=== PATIENT | female | born 1990 | race African-American/Black ===

== ENCOUNTER 2016-07-09 17:58 | Emergency (ER) | payer OTHER ==
[~2016-07-09] VITALS: Ht 160 cm; Wt 56.0 kg
[~2016-07-09 17:58] MED LIST: AMOX500T PO; DICL50 PO
[2016-07-09 17:59] VITALS: BP 98/60; PULSE 116; RESP 20; TEMP 100.8; O2SAT 93
[2016-07-09] MEDS ORDERED: ACETAMINOPHEN 325 MG TAB PO ONE (19:30)
--- NOTE | 2016-07-09 19:33 | PD ---
HPI Chief Complaint: Cold / Flu Symptoms Time Seen by Provider: 19:32 Travel History International Travel<30 days: No Contact w/Intl Traveler<30days: No Traveled to known affect area: No History of Present Illness HPI 25 year-old female presents to emergency department for evaluation of cough, chest congestion, fever, chills, body aches worsening over the last 4 days. Patient states she has not had an appetite. Denies any vomiting or diarrhea. She has taken Tylenol yesterday which helped reduce her fever but feels as though his back. Did not get an influenza vaccination. She has no other symptoms to report at this time. [facility] Past Medical History Asthma: Yes Diminished Hearing: No Immunizations Current: Yes ?: Not : 4 Para: 4 Past Surgical History Section: Yes Social History Alcohol Use: No Tobacco Use: No Substance Use: No Allergies-Medications (Allergen,Severity, Reaction): Coded Allergies: No Known Allergies (Verified , 07/09/16) Reported Meds & Prescriptions Reported Meds & Active Scripts Active No Active Prescriptions or Reported Medications Review of Systems Except as stated in HPI: all other systems reviewed are Neg Physical Exam Narrative GENERAL: Well-nourished, well-developed female patient, appears is that she does not feel well but in no acute distress SKIN: Warm and dry. HEAD: Normocephalic. EYES: No scleral icterus. No injection or drainage. ENT: Mucosa pink and moist. Erythema without exudates.. No uvular edema. No uvular, palatal, or tonsillar deviation. Airway patent. Nasal turbinates appear normal without nasal blood, purulent drainage or septal hematoma. NECK: Supple, trachea midline. No JVD or lymphadenopathy. CARDIOVASCULAR: Tachycardic rate and rhythm without murmurs, gallops, or rubs. RESPIRATORY: Breath sounds diminished, clear equal bilaterally. No accessory muscle use. Abdomen: Abdomen soft, non-tender, nondistended. Positive bowel sounds. No hepato-splenomegaly, or palpable masses. No guarding. MUSCULOSKELETAL: No cyanosis, or edema. BACK: Nontender without obvious deformity. No CVA tenderness. Data Data Last Documented VS Vital Signs Date Time Temp Pulse Resp B/P Pulse Ox O2 Delivery O2 Flow Rate FiO2 07/09/16 20:09 99.8 106 18 101/60 98 Room Air Orders Influenzae A/B Antigen (07/09/16 19:23) Group A Rapid Strep Screen (07/09/16 19:23) Acetaminophen (Tylenol) (07/09/16 19:30) Strep Culture (Group A) (07/09/16 19:27) Chest, Single Ap (07/09/16 ) MDM Medical Decision Making Medical Screen Exam Complete: Yes Emergency Medical Condition: Yes Medical Record Reviewed: Yes Differential Diagnosis Influenza versus pneumonia versus strep pharyngitis versus viral syndrome versus tonsillitis Narrative Course 25-year-old female presents to emergency department for evaluation. Patient is positive for influenza a. X-ray imaging is without acute cardiopulmonary disease. Patient is counseled on care and discharged home. She agrees to return immediately if any acute worsening symptoms. Diagnosis Primary Impression: Influenza A Referrals: Primary Care Physician Patient Instructions: General Instructions, Influenza (ED) Departure Forms: Tests/Procedures, Work Release Enter return to work date: Jul 12, 2016 Additional Instructions: Rest Follow up with your primary care provider Tylenol and/or ibuprofen as directed as needed for fever and or pain Maintain adequate oral hydration Return to the ED with any acute worsening of symptoms Med/Other Pt SpecificInfo: No Change to Meds Scripts No Active Prescriptions or Reported Meds Disposition: 01 DISCHARGE HOME Condition: Stable Vandana Major Jul 09, 2016 19:32
[2016-07-09 20:09] VITALS: BP 101/60; PULSE 106; RESP 18; TEMP 99.8; O2SAT 98
--- NOTE | 2016-07-09 20:47 | RADRPT ---
EXAM DATE/TIME: 07/09/2016 20:24 [facility] COMPARISON: No previous studies available for comparison. INDICATIONS : Patient states she has flu-like symptoms since 07/07. Patient was shielded. MEDICAL HISTORY : None. SURGICAL HISTORY : None. ENCOUNTER: Initial ACUITY: 3 days PAIN SCORE: 0/10 LOCATION: chest FINDINGS: A single view of the chest demonstrates the lungs to be symmetrically aerated without evidence of mas s, infiltrate or effusion. The cardiomediastinal contours are unremarkable. Osseous structures are intact. CONCLUSION: No acute disease. Berhane Bustos MD on July 09, 2016 at 20:45 Board Certified Radiologist. This report was verified electronically.
== END 2016-07-09 21:05 | disposition home or self-care (01) ==
LOC: NEPB 17:58
DX: J09.X2 Influenza due to identified novel influenza A virus with other respiratory manifestations (principal); J45.909 Unspecified asthma, uncomplicated
CPT/HCPCS: 71010; 87081; 87804; 87880; 99283

== ENCOUNTER 2016-09-12 13:32 | Observation (INO) | payer OTHER ==
[~2016-09-12] VITALS: Ht 160 cm; Wt 57.0 kg
[2016-09-12 13:33] VITALS: BP 100/60; PULSE 114; RESP 20; TEMP 102.9; O2SAT 100
--- NOTE | 2016-09-12 13:49 | PD ---
Physical Exam Time Seen by Provider: 13:46 Narrative 25 y/o female here with (L) sided chest pain, headache which started this AM. Denies cough, congestion, sore throat, rash, recent travel, abdominal pain, diarrhea, dysuria, flank pain. Vital signs noted. Seen at triage desk. Awaiting bed placement. Data Data Last Documented VS Vital Signs Date Time Temp Pulse Resp B/P Pulse Ox O2 Delivery O2 Flow Rate FiO2 09/12/16 13:33 102.9 114 20 100/60 100 Room Air MDM Medical Record Reviewed: Yes Supervised Visit with SARIKA: No Scripts No Active Prescriptions or Reported Meds Ken Olvera September 12, 2016 13:49
[2016-09-12] MEDS ORDERED: SODIUM CHLOR 0.9% 1000 ML INJ 1,000 ML IV ONE (14:42)
[2016-09-12] MEDS ORDERED: SODIUM CHLOR 0.9% 1000 ML INJ 800 ML IV ONE (14:42)
[2016-09-12] MEDS ORDERED: IBUPROFEN 800 MG TAB PO ONE (14:45)
--- NOTE | 2016-09-12 14:51 | PD ---
HPI Chief Complaint: Chest Pain Time Seen by Provider: 14:46 Travel History International Travel<30 days: No Contact w/Intl Traveler<30days: No Traveled to known affect area: No History of Present Illness HPI Patient is a 25-year-old female presenting to emergency for evaluation of a headache. Patient states the headache started last night, she reports the pain is a 10 out of 10 and states it's all over. She presents with a fever as well but denies any sore throat, nausea, vomiting, abdominal pain, nasal congestion, visual changes, photophobia. She does report right upper chest wall pain that also started yesterday. 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 She denies any recent travel or sick contacts. Her past medical history significant for asthma. [facility] Past Medical History Asthma: Yes Diminished Hearing: No Immunizations Current: Yes ?: Not LMP: 09/12/2016 : 4 Para: 4 Past Surgical History Section: Yes (x1) Social History Alcohol Use: No Tobacco Use: No Substance Use: No Allergies-Medications (Allergen,Severity, Reaction): Coded Allergies: No Known Allergies (Verified , 09/12/16) Reported Meds & Prescriptions Reported Meds & Active Scripts Active Reported Flagyl (Metronidazole) 500 Mg Tab 500 Mg PO BID Review of Systems Except as stated in HPI: all other systems reviewed are Neg General / Constitutional: Positive: Fever Eyes: No: Blurred Vision, Photophobia, Visual changes HENT: Positive: Headaches, No: Lightheadedness, Neck Stiffness, Neck Pain Cardiovascular: Positive: Chest Pain or Discomfort Respiratory: No: Shortness of Breath Gastrointestinal: No: Nausea, Vomiting, Diarrhea, Abdominal Pain Genitourinary: No: Dysuria Musculoskeletal: No: Myalgias Neurologic: Positive: Headache, No: Weakness, Dizziness, Syncope, Focal Abnormalities, Change in Mentation, Sensory Disturbance Physical Exam Narrative GENERAL: Thin, well-developed, drowsy female. Resting in no acute distress. Pertinent bedside. SKIN: Warm and dry. HEAD: Atraumatic. Normocephalic. EYES: Pupils equal and round. No scleral icterus. No injection or drainage. ENT: No nasal bleeding or discharge. Mucous membranes pink and moist. NECK: Trachea midline. No JVD. No meningeal signs noted. CARDIOVASCULAR: Tachycardic, no murmur noted. RESPIRATORY: No accessory muscle use. Clear to auscultation. Breath sounds diminished in bases but equal bilaterally. GASTROINTESTINAL: Abdomen soft, non-tender, nondistended. Hepatic and splenic margins not palpable. MUSCULOSKELETAL: Extremities without clubbing, cyanosis, or edema. No obvious deformities. NEUROLOGICAL: Awake but appears drowsy. Oriented 4. No obvious cranial nerve deficits. Motor grossly within normal limits. Five out of 5 muscle strength in the arms and legs. Normal speech. PSYCHIATRIC: Appropriate mood and affect; insight and judgment normal. Data Data Last Documented VS Vital Signs Date Time Temp Pulse Resp B/P Pulse Ox O2 Delivery O2 Flow Rate FiO2 09/12/16 15:22 97 Room Air 09/12/16 15:22 18 09/12/16 13:33 102.9 114 100/60 Orders Electrocardiogram (09/12/16 ) Complete Blood Count With Diff (09/12/16 14:42) Comprehensive Metabolic Panel (09/12/16 14:42) Prothrombin Time / Inr (Pt) (09/12/16 14:42) Act Partial Throm Time (Ptt) (09/12/16 14:42) Lactic Acid Sepsis Protocol (09/12/16 14:42) Magnesium (Mg) (09/12/16 14:42) Ckmb (Isoenzyme) Profile (09/12/16 14:42) Troponin I (09/12/16 14:42) Urinalysis - C+S If Indicated (09/12/16 14:42) Influenzae A/B Antigen (09/12/16 14:42) Blood Culture (09/12/16 14:42) Chest, Single Ap (09/12/16 14:42) Blood Glucose (09/12/16 14:42) Ecg Monitoring (09/12/16 14:42) Iv Access Insert/Monitor (09/12/16 14:42) Oximetry (09/12/16 14:42) Oxygen Administration (09/12/16 14:42) Ibuprofen (Motrin) (09/12/16 14:45) Sodium Chlor 0.9% 1000 Ml Inj (Ns 1000 M (09/12/16 14:42) Sodium Chlor 0.9% 1000 Ml Inj (Ns 1000 M (09/12/16 14:42) Ed Urine Pregnancytest Poc (09/12/16 14:42) Ceftriaxone Inj (Rocephin Inj) (09/12/16 15:56) Azithromycin Inj (Zithromax Inj) (09/12/16 15:56) Albuterol-Ipratropium Neb (Duoneb Neb) (09/12/16 17:00) CKMB (09/12/16 15:15) CKMB% (09/12/16 15:15) Potassium Chloride (Kcl) (09/12/16 17:45) Labs Laboratory Tests Test 09/12/16 09/12/16 15:15 16:25 White Blood Count 8.0 TH/MM3 Red Blood Count 4.59 MIL/MM3 Hemoglobin 12.8 GM/DL Hematocrit 38.9 % Mean Corpuscular Volume 84.7 FL Mean Corpuscular Hemoglobin 27.8 PG Mean Corpuscular Hemoglobin 32.8 % Concent Red Cell Distribution Width 13.5 % Platelet Count 252 TH/MM3 Mean Platelet Volume 9.4 FL Neutrophils (%) (Auto) % Lymphocytes (%) (Auto) % Monocytes (%) (Auto) % Eosinophils (%) (Auto) % Basophils (%) (Auto) % Neutrophils # (Auto) TH/MM3 Lymphocytes # (Auto) TH/MM3 Monocytes # (Auto) TH/MM3 Eosinophils # (Auto) TH/MM3 Basophils # (Auto) TH/MM3 CBC Comment AUTO DIFF Differential Total Cells 100 Counted Neutrophils % (Manual) 67 % Band Neutrophils % 7 % Lymphocytes % 16 % Monocytes % 10 % Neutrophils # (Manual) 5.9 TH/MM3 Differential Comment FINAL DIFF MANUAL Toxic Vacuolation PRESENT Platelet Estimate NORMAL Platelet Morphology Comment ENLARGED Ovalocytes 1+ Prothrombin Time 13.5 SEC Prothromb Time International 1.2 RATIO Ratio Activated Partial 30.9 SEC Thromboplast Time Sodium Level 133 MEQ/L Potassium Level 3.3 MEQ/L Chloride Level 99 MEQ/L Carbon Dioxide Level 26.6 MEQ/L Anion Gap 7 MEQ/L Blood Urea Nitrogen 7 MG/DL Creatinine 0.84 MG/DL Estimat Glomerular Filtration 101 ML/MIN Rate Random Glucose 72 MG/DL Lactic Acid Level 1.2 mmol/L Calcium Level 8.5 MG/DL Magnesium Level 2.1 MG/DL Total Bilirubin 1.8 MG/DL Aspartate Amino Transf 14 U/L (AST/SGOT) Alanine Aminotransferase 12 U/L (ALT/SGPT) Alkaline Phosphatase 62 U/L Total Creatine Kinase 116 U/L Creatine Kinase MB LESS THAN 0.5 NG/ML Troponin I LESS THAN 0.02 NG/ML Total Protein 7.2 GM/DL Albumin 3.4 GM/DL Urine Color YELLOW Urine Turbidity HAZY Urine pH 7.0 Urine Specific [place] 1.013 Urine Protein NEG mg/dL Urine Glucose (UA) NEG mg/dL Urine Ketones NEG mg/dL Urine Occult Blood SMALL Urine Nitrite NEG Urine Bilirubin NEG Urine Urobilinogen LESS THAN 2.0 MG/DL Urine Leukocyte Esterase MOD Urine RBC 3 /hpf Urine WBC 4 /hpf Urine Squamous Epithelial 11 /hpf Cells Urine Bacteria RARE /hpf Urine Mucus FEW /lpf Microscopic Urinalysis Comment CATH-CULT NOT IND MDM Medical Decision Making Medical Screen Exam Complete: Yes Emergency Medical Condition: Yes Interpretation(s) Last Impressions Chest X-Ray 09/12/16 1442 Signed Impressions: Service Date/Time: Monday, September 12, 2016 15:18 - CONCLUSION: Left lower lobe infiltrate. Infectious etiology suspected. Ricci De La Garza Jr., MD Laboratory Tests Test 09/12/16 09/12/16 15:15 16:25 White Blood Count 8.0 TH/MM3 Red Blood Count 4.59 MIL/MM3 Hemoglobin 12.8 GM/DL Hematocrit 38.9 % Mean Corpuscular Volume 84.7 FL Mean Corpuscular Hemoglobin 27.8 PG Mean Corpuscular Hemoglobin 32.8 % Concent Red Cell Distribution Width 13.5 % Platelet Count 252 TH/MM3 Mean Platelet Volume 9.4 FL Neutrophils (%) (Auto) % Lymphocytes (%) (Auto) % Monocytes (%) (Auto) % Eosinophils (%) (Auto) % Basophils (%) (Auto) % Neutrophils # (Auto) TH/MM3 Lymphocytes # (Auto) TH/MM3 Monocytes # (Auto) TH/MM3 Eosinophils # (Auto) TH/MM3 Basophils # (Auto) TH/MM3 CBC Comment AUTO DIFF Prothrombin Time 13.5 SEC Prothromb Time International 1.2 RATIO Ratio Activated Partial 30.9 SEC Thromboplast Time Sodium Level 133 MEQ/L Potassium Level 3.3 MEQ/L Chloride Level 99 MEQ/L Carbon Dioxide Level 26.6 MEQ/L Anion Gap 7 MEQ/L Blood Urea Nitrogen 7 MG/DL Creatinine 0.84 MG/DL Estimat Glomerular Filtration 101 ML/MIN Rate Random Glucose 72 MG/DL Lactic Acid Level 1.2 mmol/L Calcium Level 8.5 MG/DL Magnesium Level 2.1 MG/DL Total Bilirubin 1.8 MG/DL Aspartate Amino Transf 14 U/L (AST/SGOT) Alanine Aminotransferase 12 U/L (ALT/SGPT) Alkaline Phosphatase 62 U/L Total Creatine Kinase 116 U/L Creatine Kinase MB LESS THAN 0.5 NG/ML Troponin I LESS THAN 0.02 NG/ML Total Protein 7.2 GM/DL Albumin 3.4 GM/DL Urine Color YELLOW Urine Turbidity HAZY Urine pH 7.0 Urine Specific [place] 1.013 Urine Protein NEG mg/dL Urine Glucose (UA) NEG mg/dL Urine Ketones NEG mg/dL Urine Occult Blood SMALL Urine Nitrite NEG Urine Bilirubin NEG Urine Urobilinogen LESS THAN 2.0 MG/DL Urine Leukocyte Esterase MOD Urine RBC 3 /hpf Urine WBC 4 /hpf Urine Squamous Epithelial 11 /hpf Cells Urine Bacteria RARE /hpf Urine Mucus FEW /lpf Microscopic Urinalysis Comment CATH-CULT NOT IND Vital Signs Date Time Temp Pulse Resp B/P Pulse Ox O2 Delivery O2 Flow Rate FiO2 09/12/16 13:33 102.9 114 20 100/60 100 Room Air Differential Diagnosis Meningitis versus viral syndrome versus influenza versus sepsis versus cardiac arrhythmia versus electrolyte abnormality versus pneumonia versus other Narrative Course Patient is a 25 -year-old female presenting to emergency for evaluation of a headache. She reports this is the worst headache that she's had. She denies any other symptomology. Patient is febrile with a max temp in the emergency department of 103 orally, she is tachycardic, she appears drowsy however she has no meningeal signs at this time. Labs and imaging ordered and pending, ibuprofen ordered for fever. IV fluid resuscitation for sepsis protocol. Patient placed on telemetry monitoring, continuous pulse oximetry, IV access initiated. CBC is unremarkable Chemistry with potassium of 3.3 Cardiac enzymes are negative Urinalysis negative of urinary tract infection Lactic acid is 1.2 Patient was given 2 L of IV fluids, IV azithromycin, IV Rocephin in the emergency department. Heart rate rechecked at 88, temp 99.3, BP 96/62 Patient meet sepsis criteria, patient is agreeable to inpatient stay. [facility] paged for admission. Dr. Ingram accepted admission on behalf of Dr. Rowland Sepsis Criteria SIRS Criteria (2 or more): Temp > 100.9 or < 96.8, Heart rate over 90 Sepsis Criteria (SIRS+source): Infect source susp/known Severe Sepsis (+one): Hypotension Criteria Outcome: Meets severe sepsis criteria Diagnosis Primary Impression: Sepsis Qualified Code: A41.9 - Sepsis, due to unspecified organism Additional Impression: Pneumonia Qualified Code: J18.1 - Pneumonia of left lower lobe due to infectious organism Condition: Stable Adrianna Hernandez DOOR TO DOOR SELLING AGENT September 12, 2016 14:51
[2016-09-12 15:22] VITALS: RESP 18; O2SAT 97
[2016-09-12] MEDS ORDERED: METR-1 PO (15:26)
--- NOTE | 2016-09-12 15:54 | RADRPT ---
EXAM DATE/TIME: 09/12/2016 15:18 [facility] COMPARISON: CHEST SINGLE AP, July 09, 2016, 20:24. INDICATIONS : Fever that started yesterday. MEDICAL HISTORY : Asthma. SURGICAL HISTORY : None. ENCOUNTER: Initial ACUITY: 2 days PAIN SCORE: 0/10 LOCATION: Bilateral chest FINDINGS: A single portable frontal view the chest shows a left lower lobe infiltrate. This is new from the loc or study. Right lung is clear. Heart is normal in size. No effusions. Mild scoliotic curvature. CONCLUSION: Left lower lobe infiltrate. Infectious etiology suspected. Ricci De La Garza Jr., MD on September 12, 2016 at 15:50 Board Certified Radiologist. This report was verified electronically.
[2016-09-12] MEDS ORDERED: AZITHROMYCIN INJ 500 MG in SODIUM CHLOR 0.9% 250 ML INJ 250 ML IV STA (15:56)
[2016-09-12] MEDS ORDERED: cefTRIAXone INJ 2,000 MG in SODIUM CHLORIDE 0.9% INJ 100 ML IV STA (15:56)
[2016-09-12 16:39] LABS: HEMATOCRIT 38.9 % (35.0-46.0); MEAN CELL VOLUME 84.7 FL (80.0-100.0); MEAN CORPUSCULAR HEMOGLOBIN 27.8 PG (27.0-34.0); MEAN CORPUSCULAR HGB CONC 32.8 % (32.0-36.0); PLATELET COUNT 252 TH/MM3 (150-450); RED BLOOD COUNT 4.59 MIL/MM3 (4.00-5.30); RED CELL DISTRIBUTION WIDTH 13.5 % (11.6-17.2)
[2016-09-12 16:47] LABS: APTT (PATIENT) 30.9 SEC (24.3-30.1); INTERNATIONAL NORMALIZED RATIO 1.2 RATIO; PROTHROMBIN TIME - PATIENT 13.5 SEC (9.8-11.6)
[2016-09-12 16:58] LABS: ALT (GPT) 12 U/L (10-53); ANION GAP 7 MEQ/L (5-15); AST (GOT) 14 U/L (15-37); BICARBONATE 26.6 MEQ/L (21.0-32.0); BLOOD UREA NITROGEN 7 MG/DL (7-18); CHLORIDE 99 MEQ/L (98-107); GLOMERULAR FILTRATION RATE 101 ML/MIN (>89); MAGNESIUM 2.1 MG/DL (1.5-2.5); POTASSIUM 3.3 MEQ/L (3.5-5.1); SODIUM (NA) 133 MEQ/L (136-145)
[2016-09-12] MEDS ORDERED: RESP: ALBUTEROL 2.5 MG/IPRATROPIUM 0.5 MG NEB (SCH) NEB ONE (17:00)
[2016-09-12 17:06] LABS: ALKALINE PHOSPHATASE 62 U/L (45-117); CREATINE KINASE 116 U/L (26-192); TOTAL BILIRUBIN ADULT 1.8 MG/DL (0.2-1.0)
[2016-09-12 17:07] LABS: HEMO FLAGS AUTO DIFF
[2016-09-12 17:16] LABS: BACTERIA, URINE RARE /hpf; BLOOD, URINE SMALL (NEG); GLUCOSE,URINE NEG (NEG); KETONE, URINE NEG (NEG); MUCUS URINE FEW /lpf (OCC); NITRITE,URINE NEG (NEG); SQUAMOUS EPITHELIAL CELL URINE 11 /hpf (0-5); URINE COLOR YELLOW (YELLW/STRAW)
[2016-09-12 17:17] LABS: COMMENT (UR) CATH-CULT NOT IND; CULTURE IF INDICATED CATH CULTURE NOT IND
[2016-09-12 17:18] LABS: CKMB LESS THAN 0.5 NG/ML (0.5-3.6)
[2016-09-12 17:38] LABS: BANDS 7 % (0-6); NEUTROPHIL # MANUAL DIFF 5.9 TH/MM3 (1.8-7.7); POLYS (SEG NEUTROPHILS) 67 % (16-70); WBC DIFF SAMPLE 100
[2016-09-12 17:40] LABS: OVALOCYTES 1+ (NORMAL); PLATELET ESTIMATE SMEAR NORMAL (NORMAL); PLATELET MORPHOLOGY ENLARGED (NORMAL); TOXIC VACUOLATION PRESENT (NONE SEEN)
[2016-09-12 17:42] LABS: SCAN/DIFF FINAL DIFF MANUAL
[2016-09-12] MEDS ORDERED: POTASSIUM CHLORIDE 10 MEQ CONTROLLED RELEASE TAB PO ONE (17:45)
[2016-09-12 18:21] VITALS: BP 96/63; PULSE 91; RESP 18; O2SAT 100
--- NOTE | 2016-09-12 18:23 | EKG ---
Date Performed: 09/12/2016 Time Performed: 14:01:13 PTAGE: 25 years EKG: SINUS TACHYCARDIA NONSPECIFIC ST & T-WAVE ABNORMALITY ABNORMAL ECG NO PREVIOUS TRACING DOCTOR: Jacob Lyman Interpretating Date/Time 09/12/2016 18:22:00
[2016-09-12 19:13] VITALS: BP 92/51; PULSE 96; RESP 18; O2SAT 100
--- NOTE | 2016-09-12 21:30 | HHI.HP ---
HPI Service [facility] Hospitalists Primary Care Physician No Primary Care Physician Admission Diagnosis SEPSIS, PNA Chief Complaint: headache pleuritic chest pain fever Travel History International Travel<30 Days: No Contact w/Intl Traveler <30 Da: No Traveled to Known Affected Are: No Sepsis Criteria SIRS Criteria (2 or more): Temp > 100.9 or < 96.8, Heart rate over 90 Sepsis Criteria (SIRS+source): Infect source susp/known History of Present Illness Patient is a 25-year-old female presenting to emergency for evaluation of a headache. Patient states the headache started last night, she reports the pain is a 10 out of 10 and states it's all over. She presents with a fever as well but denies any sore throat, nausea, vomiting, abdominal pain, nasal congestion, visual changes, photophobia. She does report right upper chest wall pain that also started yesterday. Patient states maybe has slight cough. 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 She denies any recent travel or sick contacts. Her past medical history significant for asthma. In er had chest xray which has left lower lobe infiltrate consistent with pneumonia. Review of Systems Constitutional: COMPLAINS OF: Fatigue, Fever Respiratory: COMPLAINS OF: Cough Past Family Social History Past Medical History none Past Surgical History none Reported Medications flagyl Allergies: Coded Allergies: No Known Allergies (Verified , 09/12/16) Social History NS,ND Physical Exam Vital Signs Vital Signs Date Time Temp Pulse Resp B/P Pulse Ox O2 Delivery O2 Flow Rate FiO2 09/12/16 19:13 96 18 92/51 100 Room Air 09/12/16 18:21 91 18 96/63 100 Room Air 09/12/16 15:22 97 Room Air 09/12/16 15:22 18 97 Room Air 09/12/16 13:33 102.9 114 20 100/60 100 Room Air Physical Exam GENERAL: This is a well-nourished, well-developed patient, in no apparent distress. SKIN: No rashes, ecchymoses or lesions. Cool and dry. HEAD: Atraumatic. Normocephalic. No temporal or scalp tenderness. EYES: Pupils equal round and reactive. Extraocular motions intact. No scleral icterus. No injection or drainage. ENT: Nose without bleeding, purulent drainage or septal hematoma. Throat without erythema, tonsillar hypertrophy or exudate. Uvula midline. Airway patent. NECK: Trachea midline. No JVD or lymphadenopathy. Supple, nontender, no meningeal signs. CARDIOVASCULAR: Regular rate and rhythm without murmurs, gallops, or rubs. RESPIRATORY: Rhonchi base decrease breath sounds. GASTROINTESTINAL: Abdomen soft, non-tender, nondistended. No hepato-splenomegaly , or palpable masses. No guarding. MUSCULOSKELETAL: Extremities without clubbing, cyanosis, or edema. No joint tenderness, effusion, or edema noted. No calf tenderness. Negative Homans sign bilaterally. NEUROLOGICAL: Awake and alert. Cranial nerves II through XII intact. Motor and sensory grossly within normal limits. Five out of 5 muscle strength in all muscle groups. Normal speech. Laboratory Laboratory Tests Test 09/12/16 09/12/16 15:15 16:25 White Blood Count 8.0 Red Blood Count 4.59 Hemoglobin 12.8 Hematocrit 38.9 Mean Corpuscular Volume 84.7 Mean Corpuscular Hemoglobin 27.8 Mean Corpuscular Hemoglobin 32.8 Concent Red Cell Distribution Width 13.5 Platelet Count 252 Mean Platelet Volume 9.4 Neutrophils (%) (Auto) Lymphocytes (%) (Auto) Monocytes (%) (Auto) Eosinophils (%) (Auto) Basophils (%) (Auto) Neutrophils # (Auto) Lymphocytes # (Auto) Monocytes # (Auto) Eosinophils # (Auto) Basophils # (Auto) CBC Comment AUTO DIFF Differential Total Cells 100 Counted Neutrophils % (Manual) 67 Band Neutrophils % 7 Lymphocytes % 16 Monocytes % 10 Neutrophils # (Manual) 5.9 Differential Comment FINAL DIFF MANUAL Toxic Vacuolation PRESENT Platelet Estimate NORMAL Platelet Morphology Comment ENLARGED Ovalocytes 1+ Prothrombin Time 13.5 Prothromb Time International 1.2 Ratio Activated Partial 30.9 Thromboplast Time Sodium Level 133 Potassium Level 3.3 Chloride Level 99 Carbon Dioxide Level 26.6 Anion Gap 7 Blood Urea Nitrogen 7 Creatinine 0.84 Estimat Glomerular Filtration 101 Rate Random Glucose 72 Lactic Acid Level 1.2 Calcium Level 8.5 Magnesium Level 2.1 Total Bilirubin 1.8 Aspartate Amino Transf 14 (AST/SGOT) Alanine Aminotransferase 12 (ALT/SGPT) Alkaline Phosphatase 62 Total Creatine Kinase 116 Creatine Kinase MB LESS THAN 0.5 Troponin I LESS THAN 0.02 Total Protein 7.2 Albumin 3.4 Urine Color YELLOW Urine Turbidity HAZY Urine pH 7.0 Urine Specific [place] 1.013 Urine Protein NEG Urine Glucose (UA) NEG Urine Ketones NEG Urine Occult Blood SMALL Urine Nitrite NEG Urine Bilirubin NEG Urine Urobilinogen LESS THAN 2.0 Urine Leukocyte Esterase MOD Urine RBC 3 Urine WBC 4 Urine Squamous Epithelial 11 Cells Urine Bacteria RARE Urine Mucus FEW Microscopic Urinalysis Comment CATH-CULT NOT IND Date/Time Procedure Status Source Growth 09/12/16 15:20 Influenza Types A,B Antigen (LUCIAN) - Final Complete Nasal Washing NEGATIVE FOR FLU A AND B ANTIGEN.... 09/12/16 15:20 Aerobic Blood Culture Received Blood Peripheral Pending 09/12/16 15:20 Anaerobic Blood Culture Received Blood Peripheral Pending Result Diagram: 09/12/16 1515 09/12/16 1515 Imaging Last 24 hours Impressions Chest X-Ray 09/12/16 1442 Signed Impressions: Service Date/Time: Monday, September 12, 2016 15:18 - CONCLUSION: Left lower lobe infiltrate. Infectious etiology suspected. Ricci De La Garza Jr., MD Course in er started on rocephin and zithromax Assessment and Plan Problem List: (1) Pneumonia Status: Acute Plan: start rocephin and zithromax IV (2) Sepsis Status: Acute Plan: based on criteria will follow up clinically (3) Head ache Status: Acute Plan: improved at this time but patient did say was worst headache she has had would get CT head non contrast Assessment and Plan further plan as case develops Code Status full Discussed Condition With patient Physician Certification 2 Midnight Certification Type: Admission for Inpatient Services Order for Inpatient Services The services are ordered in accordance with Medicare regulations or non- Medicare payer requirements, as applicable. In the case of services not specified as inpatient-only, they are appropriately provided as inpatient services in accordance with the 2-midnight benchmark. Estimated LOS (days): 2 2 days is the estimated time the patient will need to remain in the hospital, assuming treatment plan goals are met and no additional complications. Post-Hospital Plan: Not yet determined Problem Qualifiers (1) Pneumonia: Qualified Code: J18.1 - Pneumonia of left lower lobe due to infectious organism (2) Sepsis: Qualified Code: A41.9 - Sepsis, due to unspecified organism Antelmo Sams MD September 12, 2016 21:30
[2016-09-12] MEDS ORDERED: ONDANSETRON HCL 4 MG/2 ML VIAL IVP PRN (21:45)
[2016-09-12] MEDS ORDERED: SODIUM CHLORIDE 0.9% FLUSH 10 ML FLUSH IV FLUSH PRN (21:45)
[2016-09-12] MEDS ORDERED: NALOXONE HCL 0.4 MG/ML AMP IV PRN (21:45)
[2016-09-12] MEDS ORDERED: ACETAMINOPHEN 325 MG TAB PO PRN (21:45)
[2016-09-12] MEDS: SODIUM CHLORIDE 0.9% FLUSH 10 ML FLUSH IV FLUSH SCH (21:55)
[2016-09-12] MEDS ORDERED: 1/2 NS + KCL 20 MEQ INJ 1,000 ML IV SCH (22:00)
[2016-09-12 22:35] VITALS: BP 95/64; PULSE 86; RESP 18; O2SAT 98
[2016-09-13] VITALS (7 sets, daily range): BP systolic 99–110; BP diastolic 57–65; PULSE 84–115; RESP 18–20; TEMP 97.7–99.4; O2SAT 98–100
[2016-09-13 08:50] LABS: AUTOMATED NEUTROPHIL # 4.4 TH/MM3 (1.8-7.7); BASOPHIL % 0.6 % (0.0-2.0); EOSINOPHIL # 0.2 TH/MM3 (0-0.4); EOSINOPHIL % 3.2 % (0.0-4.0); HEMATOCRIT 33.7 % (35.0-46.0); HEMO FLAGS DIFF FINAL; LYMPH % 14.1 % (9.0-44.0); LYMPHOCYTE # 0.9 TH/MM3 (1.0-4.8); MEAN CELL VOLUME 84.5 FL (80.0-100.0); MEAN CORPUSCULAR HGB CONC 33.2 % (32.0-36.0); MONO % 12.6 % (0.0-8.0); NEUT % 69.5 % (16.0-70.0); PLATELET COUNT 223 TH/MM3 (150-450); RED BLOOD COUNT 3.98 MIL/MM3 (4.00-5.30); RED CELL DISTRIBUTION WIDTH 13.4 % (11.6-17.2); WHITE BLOOD COUNT 6.3 TH/MM3 (4.0-11.0)
[2016-09-13] MEDS ORDERED: metroNIDAZOLE 500 MG TAB PO SCH (09:00)
--- NOTE | 2016-09-13 11:30 | HHI.PR ---
Subjective Remarks denies left cp or branch now no cough/congestion. Objective Vitals heart reg lung good air entry abd s/nt ext no edema Vital Signs Date Time Temp Pulse Resp B/P Pulse Ox O2 Delivery O2 Flow Rate FiO2 09/13/16 08:35 100 09/13/16 08:00 99.4 97 20 102/57 98 09/13/16 04:00 99.2 105 20 110/65 100 09/13/16 01:22 84 09/13/16 00:45 97.7 87 18 106/57 100 09/12/16 22:35 86 18 95/64 98 Room Air 09/12/16 19:13 96 18 92/51 100 Room Air 09/12/16 18:21 91 18 96/63 100 Room Air 09/12/16 15:22 97 Room Air 09/12/16 15:22 18 97 Room Air 09/12/16 13:33 102.9 114 20 100/60 100 Room Air 09/12/16 09/12/16 09/13/16 15:00 23:00 07:00 Intake Total 658 ml Balance 658 ml Intake Oral 0 ml IV Total 658 ml # Voids 1 # Bowel Movements 0 Result Diagram: 09/13/16 0705 09/12/16 1515 Imaging Last 24 hours Impressions Chest X-Ray 09/12/16 1442 Signed Impressions: Service Date/Time: Monday, September 12, 2016 15:18 - CONCLUSION: Left lower lobe infiltrate. Infectious etiology suspected. Ricci De La Garza Jr., MD A/P Problem List: (1) Pneumonia Status: Acute Plan: Pt presented with high fever, BRANCH and left cp works in RETIREMENT w/up in ED was concerning for left lung pna..she still has no respiratory sx's She refused ivf and iv abx and wants po convert to po levaquin recheck labs and hcg this AM..reimage lung d/c ivf will need close outpt f/u (2) Head ache Status: Acute Plan: see above Problem Qualifiers (1) Pneumonia: Qualified Code: J18.1 - Pneumonia of left lower lobe due to infectious organism Oscar Rowland MD September 13, 2016 11:30
[2016-09-13] MEDS ORDERED: LEVOFLOXACIN 500 MG TAB PO ONE (12:30)
[2016-09-13] MEDS: IBUPROFEN 400 MG TAB PO PRN ×2 (12:45→20:39)
[2016-09-13 14:38] LABS: AUTOMATED NEUTROPHIL # 5.3 TH/MM3 (1.8-7.7); BASOPHIL % 0.4 % (0.0-2.0); EOSINOPHIL # 0.2 TH/MM3 (0-0.4); EOSINOPHIL % 2.4 % (0.0-4.0); HEMATOCRIT 35.4 % (35.0-46.0); HEMO FLAGS DIFF FINAL; LYMPH % 16.3 % (9.0-44.0); LYMPHOCYTE # 1.2 TH/MM3 (1.0-4.8); MEAN CELL VOLUME 84.8 FL (80.0-100.0); MEAN CORPUSCULAR HEMOGLOBIN 26.7 PG (27.0-34.0); MEAN CORPUSCULAR HGB CONC 31.5 % (32.0-36.0); MONO % 10.2 % (0.0-8.0); NEUT % 70.7 % (16.0-70.0); PLATELET COUNT 240 TH/MM3 (150-450); RED BLOOD COUNT 4.17 MIL/MM3 (4.00-5.30); RED CELL DISTRIBUTION WIDTH 13.2 % (11.6-17.2); WHITE BLOOD COUNT 7.5 TH/MM3 (4.0-11.0)
[2016-09-13 14:59] LABS: ANION GAP 6 MEQ/L (5-15); BICARBONATE 25.1 MEQ/L (21.0-32.0); BLOOD UREA NITROGEN 5 MG/DL (7-18); CHLORIDE 106 MEQ/L (98-107); GLOMERULAR FILTRATION RATE 131 ML/MIN (>89); POTASSIUM 3.8 MEQ/L (3.5-5.1); SODIUM (NA) 137 MEQ/L (136-145)
[2016-09-13 15:03] LABS: BETA HCG QUANT LESS THAN 1 MIU/ML (0-5)
[2016-09-13] MEDS ORDERED: AZITHROMYCIN INJ 500 MG in SODIUM CHLOR 0.9% 250 ML INJ 250 ML IV SCH (16:00)
[2016-09-13] MEDS ORDERED: cefTRIAXone INJ 1,000 MG in SODIUM CHLORIDE 0.9% INJ 100 ML IV SCH (16:00)
--- NOTE | 2016-09-13 16:34 | RADRPT ---
EXAM DATE/TIME: 09/13/2016 16:14 [facility] COMPARISON: No previous studies available for comparison. INDICATIONS : Evaluate for pneumonia. RADIATION DOSE: 4.94 CTDIvol (mGy) MEDICAL HISTORY : None SURGICAL HISTORY : None. ENCOUNTER: Initial ACUITY: 1 day PAIN SCALE: 0/10 LOCATION: Bilateral chest TECHNIQUE: Volumetric scanning of the chest was performed. Using automated exposure control and adjustment of t he mA and/or kV according to patient size, radiation dose was kept as low as reasonably achievable to obtain optimal diagnostic quality images. FINDINGS: LUNGS: A dense consolidation with air bronchograms observed involving the left lower lobe. Remaining lungs a re clear. PLEURAE: There is no pleural thickening or pleural effusion. MEDIASTINUM: The heart and great vessels demonstrate no acute abnormality. There is no mediastinal or hilar lymph adenopathy. AXILLAE: Within normal limits. No lymphadenopathy. MUSCULOSKELETAL: Within normal limits for patient age. MISCELLANEOUS: The visualized upper abdominal organs demonstrate no acute abnormality. CONCLUSION: 1. Left lower lobe infiltrate. Infectious etiology suspected. Ricci De La Garza Jr., MD on September 13, 2016 at 16:29 Board Certified Radiologist. This report was verified electronically.
[2016-09-13] MEDS: SODIUM CHLORIDE 0.9% FLUSH 10 ML FLUSH IV FLUSH SCH (20:19)
[2016-09-14] VITALS: BP 94/51; PULSE 83; RESP 18; TEMP 98.2; O2SAT 100
[2016-09-14 04:00] VITALS: BP 101/60; PULSE 77; RESP 18; TEMP 98.4; O2SAT 98
[2016-09-14 08:00] VITALS: BP 116/66; PULSE 82; RESP 20; TEMP 98.2; O2SAT 96
[2016-09-14] MEDS: SODIUM CHLORIDE 0.9% FLUSH 10 ML FLUSH IV FLUSH SCH (08:38)
[2016-09-14] MEDS ORDERED: LEVOFLOXACIN 500 MG TAB PO SCH (09:00)
--- NOTE | 2016-09-14 09:10 | HHI.PR ---
Subjective Remarks no respiratory distress wants to go home. Objective Vitals heent neg heart reg lung good air entry abd s/nt ext no edema Vital Signs Date Time Temp Pulse Resp B/P Pulse Ox O2 Delivery O2 Flow Rate FiO2 09/14/16 08:00 98.2 82 20 116/66 96 09/14/16 04:00 98.4 77 18 101/60 98 09/14/16 00:00 98.2 83 18 94/51 100 09/13/16 20:00 98.3 108 18 99/63 98 09/13/16 13:45 20 09/13/16 12:00 99.2 115 20 110/63 100 09/13/16 09/13/16 09/14/16 15:00 23:00 07:00 Intake Total 220 ml 120 ml Balance 220 ml 120 ml Intake Oral 220 ml 120 ml IV Total 0 ml # Voids 2 1 # Bowel Movements 0 0 Result Diagram: 09/13/16 1328 09/13/16 1328 Imaging Last 24 hours Impressions Chest X-Ray 09/12/16 1442 Signed Impressions: Service Date/Time: Monday, September 12, 2016 15:18 - CONCLUSION: Left lower lobe infiltrate. Infectious etiology suspected. Ricci De La Garza Jr., MD A/P Problem List: (1) Pneumonia Status: Acute Plan: Pt presented with high fever, BRANCH and left cp works in [employer] cxr and ct chest reveal left lung pna She refused ivf and iv abx and wants po pt is asx today will dc on levaquin long discussion about f/u pcp office and get repeat cxr to assure resolution. she just signed up with [facility] and her mother goes to [facility]...I called cp call center and they say she is assigned to the same clinic. pt will call for new pt appt and hospital f/u. (2) Head ache Status: Acute Plan: see above Problem Qualifiers (1) Pneumonia: Qualified Code: J18.1 - Pneumonia of left lower lobe due to infectious organism Oscra Rowland MD September 14, 2016 09:10
[2016-09-14] MEDS ORDERED: LEVA500T PO (09:11)
--- NOTE | 2016-09-14 09:12 | HHI.DCPOC ---
Discharge Care Plan Diagnosis: (1) Pneumonia Goals to Promote Your Health * To prevent worsening of your condition and complications * To maintain your health at the optimal level Directions to Meet Your Goals Take your medications as prescribed Follow your dietary instruction Follow activity as directed Keep your appointments as scheduled Take your immunizations and boosters as scheduled If your symptoms worsen call your PCP, if no PCP go to Urgent Care Center or Emergency Room Smoking is Dangerous to Your Health. Avoid second hand smoke Call the 24-hour hour crisis hotline for domestic abuse at Oscar Rowland MD September 14, 2016 09:12
== END 2016-09-14 10:15 | disposition home or self-care (01) ==
LOC: NEPD 13:32 → NEDH 18:28 → INTOOBSV 18:28 → N04A 09-13 00:36
PROVIDERS: ADMIT Hospitalist; ATTEND Hospitalist
DX: A41.9 Sepsis, unspecified organism (principal); J18.1 Lobar pneumonia, unspecified organism; R51 Headache; J45.909 Unspecified asthma, uncomplicated; R00.0 Tachycardia, unspecified; R94.31 Abnormal electrocardiogram [ECG] [EKG]
CPT/HCPCS: 71010; 71250; 80048; 80053; 81001; 82550; 82552; 83605; 83735; 84484; 84702; 84703; 85007; 85025; 85027; 85610; 85730; 87040; 87449; 87804; 93005; 94664; 96361; 96365; 96366; 96368; 99285; G0378; J0456; J0696; J7030; J7050

== ENCOUNTER 2016-09-24 21:50 | Emergency (ER) | payer OTHER ==
[~2016-09-24] VITALS: Ht 167.6 cm; Wt 55.0 kg
[~2016-09-24 21:50] MED LIST changes: -AMOX500T PO; -DICL50 PO; +LEVA500T PO
[2016-09-24 21:52] VITALS: BP 100/64; PULSE 72; RESP 16; TEMP 97.7; O2SAT 100
--- NOTE | 2016-09-24 22:29 | PD ---
HPI Chief Complaint: Chest Pain Time Seen by Provider: 22:24 Travel History International Travel<30 days: No Contact w/Intl Traveler<30days: No Traveled to known affect area: No History of Present Illness HPI 25-year-old female presents to the emergency department for one day of right- sided chest tightness. Patient notes that the area is tender to palpation and pushing on her chest wall and she worsens her discomfort. Patient states at rest discomfort is 5/10 in intensity and with palpation as 8/10 in intensity. Patient reports she was recently hospitalized September 12 to September 14 with diagnosis of pneumonia and is currently taking outpatient Levaquin daily and has 2 remaining dosages of the medication to take. Patient's had no further fever chills cough congestion shortness of breath pleuritic chest pain; has experienced no nausea no vomiting no abdominal pain no diarrhea no flank pain no dysuria frequency or urgency; and last period was September 12 and denies . Patient denies any chronic medical conditions such as CAD hypertension dyslipidemia diabetes tobaccoism clotting disorder or premature onset heart disease in her family. Patient has taken no medication for her discomfort. Patient does have a prescription for ibuprofen and her purse and her grandmother offered her some ibuprofen which he did not take any of this medication. [facility] Past Medical History Narrative Medical Asthma, pneumonia times one; no tobacco use; nursing notes reviewed Asthma: Yes Cancer: No Cardiovascular Problems: No Diminished Hearing: No Endocrine: No Immune Disorder: No Musculoskeletal: No Neurologic: No Psychiatric: No Reproductive: No Immunizations Current: Yes Tetanus Vaccination: Unknown Influenza Vaccination: No ?: Not LMP: 09/12/16 : 4 Para: 4 Past Surgical History Section: Yes (x1) Gynecologic Surgery: Yes (1 c section) Social History Alcohol Use: No Tobacco Use: No Substance Use: No Allergies-Medications (Allergen,Severity, Reaction): Coded Allergies: No Known Allergies (Verified , 09/24/16) Reported Meds & Prescriptions Reported Meds & Active Scripts Active Levaquin (Levofloxacin) 500 Mg Tab 500 Mg PO DAILY Review of Systems Except as stated in HPI: all other systems reviewed are Neg General / Constitutional: No: Fever, Chills HENT: No: Congestion Cardiovascular: Positive: Chest Pain or Discomfort Respiratory: No: Cough, Shortness of Breath, Wheezing Gastrointestinal: No: Nausea, Vomiting, Diarrhea, Abdominal Pain Genitourinary: No: Frequency, Dysuria, Flank Pain Musculoskeletal: No: Myalgias, Arthralgias Skin: No Rash Neurologic: No: Weakness Psychiatric: No: Anxiety Endocrine: No: Heat Intolerance Hematologic/Lymphatic: No: Easy Bruising Physical Exam Narrative GENERAL: Well-developed well-nourished female in no acute distress no respiratory distress SKIN: Warm and dry. HEAD: Normocephalic. EYES: No scleral icterus. No injection or drainage. NECK: Supple, trachea midline. No JVD or lymphadenopathy. CARDIOVASCULAR: Regular rate and rhythm without murmurs, gallops, or rubs. Chest wall: Reproducible tenderness to right upper anterior chest wall to palpation no crepitus no induration no increased warmth no ecchymosis no rash no vesicles. RESPIRATORY: Breath sounds equal bilaterally. No accessory muscle use. GASTROINTESTINAL: Abdomen soft, non-tender, nondistended. MUSCULOSKELETAL: No cyanosis, or edema. BACK: Nontender without obvious deformity. No CVA tenderness. Data Data Last Documented VS Vital Signs Date Time Temp Pulse Resp B/P Pulse Ox O2 Delivery O2 Flow Rate FiO2 09/24/16 22:14 18 99 09/24/16 21:52 97.7 72 100/64 Orders Chest, Pa & Lat (09/24/16 ) Ed Urine Pregnancytest Poc (09/24/16 22:29) Ibuprofen (Motrin) (09/24/16 22:30) Complete Blood Count With Diff (09/24/16 23:08) Basic Metabolic Panel (Bmp) (09/24/16 23:08) Lactic Acid (09/24/16 23:08) Blood Culture (09/24/16 23:08) D-Dimer (09/24/16 23:08) Ceftriaxone Inj (Rocephin Inj) (09/24/16 23:15) Sodium Chlorid 0.9% 500 Ml Inj (Ns 500 M (09/24/16 23:15) Labs Laboratory Tests Test 09/24/16 09/24/16 23:25 23:30 White Blood Count 8.7 TH/MM3 Red Blood Count 5.16 MIL/MM3 Hemoglobin 13.8 GM/DL Hematocrit 43.5 % Mean Corpuscular Volume 84.3 FL Mean Corpuscular Hemoglobin 26.8 PG Mean Corpuscular Hemoglobin 31.7 % Concent Red Cell Distribution Width 13.8 % Platelet Count 388 TH/MM3 Mean Platelet Volume 8.5 FL Neutrophils (%) (Auto) 44.4 % Lymphocytes (%) (Auto) 37.4 % Monocytes (%) (Auto) 6.3 % Eosinophils (%) (Auto) 10.9 % Basophils (%) (Auto) 1.0 % Neutrophils # (Auto) 3.9 TH/MM3 Lymphocytes # (Auto) 3.3 TH/MM3 Monocytes # (Auto) 0.6 TH/MM3 Eosinophils # (Auto) 0.9 TH/MM3 Basophils # (Auto) 0.1 TH/MM3 CBC Comment DIFF FINAL Differential Comment D-Dimer Quantitative (PE/DVT) 0.42 MG/L FEU Sodium Level 137 MEQ/L Potassium Level 4.2 MEQ/L Chloride Level 101 MEQ/L Carbon Dioxide Level 29.4 MEQ/L Anion Gap 7 MEQ/L Blood Urea Nitrogen 10 MG/DL Creatinine 0.85 MG/DL Estimat Glomerular Filtration 99 ML/MIN Rate Random Glucose 67 MG/DL Calcium Level 9.3 MG/DL Lactic Acid Level 0.7 mmol/L MDM Medical Decision Making Medical Screen Exam Complete: Yes Emergency Medical Condition: Yes Medical Record Reviewed: Yes Interpretation(s) Vital Signs Date Time Temp Pulse Resp B/P Pulse Ox O2 Delivery O2 Flow Rate FiO2 09/24/16 22:14 18 99 09/24/16 21:52 97.7 72 16 100/64 100 Last Impressions Chest X-Ray 09/24/16 0000 Signed Impressions: Service Date/Time: Saturday, September 24, 2016 22:37 - CONCLUSION: Right basilar streakiness consistent with atelectasis and/or developing infiltrate within the right lower lobe. Clinical correlation is recommended. Urbano Rodríguez MD CBC & BMP Diagram 09/24/16 23:25 Lactic acid: 0.7, not elevated D-dimer: 0.42, not elevated Differential Diagnosis Chest pain, ACS, musculoskeletal pain, costochondritis, pleurisy, pneumonia, PE Narrative Course Patient placed on telemetry monitor vital signs are in normal range EKG performed sinus rhythm rate [address] elevation or injury pattern change noted; chest x-ray ordered patient administered ibuprofen 600 mg times one dose Patient identified to have right lower lobe infiltrate on x-ray patient administered Rocephin 1 g IV piggyback after specimens for blood culture 2 also specimens collected for CBC, basic metabolic panel, d-dimer, lactic acid, [id number] hCG Lab values found to be grossly normal range; patient is clinically improved; patient stable for outpatient management and encouraged to complete course of antibiotic as provided and to follow-up with primary care provider on Monday Diagnosis Primary Impression: Right pulmonary infiltrate on CXR Referrals: Primary Care Physician 2 days Patient Instructions: General Instructions Departure Forms: Tests/Procedures, Work Release Enter return to work date: September 28, 2016 Additional Instructions: Complete course of antibiotic as prescribed Follow-up with primary care provider call office on Monday to schedule follow- up appointment No work 3 days Take ibuprofen/Advil/Motrin 400 mg as often as every 6 hours for fever 100.4F or greater or for pain associated with inflammation Take acetaminophen/Tylenol every 4 hours as needed for fever 100.4F or greater or for mild pain Return to the emergency department for any concerns or change in condition Increase fluid hydration Med/Other Pt SpecificInfo: Prescription(s) given Scripts Doxycycline Hyclate 100 Mg [id number] Mg PO BID #14 CAP Ref 0 Prov:Claudia Sung MD 09/25/16 Disposition: 01 DISCHARGE HOME Condition: Stable Claudia Sung MD September 24, 2016 22:28
[2016-09-24] MEDS ORDERED: IBUPROFEN 600 MG TAB PO ONE (22:30)
--- NOTE | 2016-09-24 22:54 | RADRPT ---
EXAM DATE/TIME: 09/24/2016 22:37 [facility] COMPARISON: No previous studies available for comparison. INDICATIONS : Chest pain. MEDICAL HISTORY : Asthma. SURGICAL HISTORY : None. ENCOUNTER: Initial ACUITY: 1 day PAIN SCORE: 8/10 LOCATION: Bilateral chest FINDINGS: Right basilar streakiness is noted consistent with possible right lower lobe infiltrate. Clinical co rrelation is recommended. The left lung is clear. The heart and mediastinal structures are normal. CONCLUSION: Right basilar streakiness consistent with atelectasis and/or developing infiltrate within the right l ower lobe. Clinical correlation is recommended. Urbano Rodríguez MD on September 24, 2016 at 22:47 Board Certified Radiologist. This report was verified electronically.
[2016-09-24] MEDS ORDERED: SODIUM CHLORID 0.9% 500 ML INJ 500 ML IV ONE (23:15)
[2016-09-24] MEDS ORDERED: cefTRIAXone INJ 1,000 MG in SODIUM CHLORIDE 0.9% INJ 100 ML IV ONE (23:15)
[2016-09-24 23:44] LABS: AUTOMATED NEUTROPHIL # 3.9 TH/MM3 (1.8-7.7); BASOPHIL # 0.1 TH/MM3 (0-0.2); EOSINOPHIL # 0.9 TH/MM3 (0-0.4); EOSINOPHIL % 10.9 % (0.0-4.0); HEMATOCRIT 43.5 % (35.0-46.0); HEMO FLAGS DIFF FINAL; LYMPH % 37.4 % (9.0-44.0); LYMPHOCYTE # 3.3 TH/MM3 (1.0-4.8); MEAN CELL VOLUME 84.3 FL (80.0-100.0); MEAN CORPUSCULAR HEMOGLOBIN 26.8 PG (27.0-34.0); MEAN CORPUSCULAR HGB CONC 31.7 % (32.0-36.0); MONO % 6.3 % (0.0-8.0); NEUT % 44.4 % (16.0-70.0); PLATELET COUNT 388 TH/MM3 (150-450); RED BLOOD COUNT 5.16 MIL/MM3 (4.00-5.30); RED CELL DISTRIBUTION WIDTH 13.8 % (11.6-17.2); WHITE BLOOD COUNT 8.7 TH/MM3 (4.0-11.0)
[2016-09-25 00:04] LABS: BICARBONATE 29.4 MEQ/L (21.0-32.0)
[2016-09-25 00:05] LABS: POTASSIUM 4.2 MEQ/L (3.5-5.1)
[2016-09-25] MEDS ORDERED: DOXY100C PO (00:19)
--- NOTE | 2016-09-25 16:30 | EKG ---
Date Performed: 09/24/2016 Time Performed: 22:18:16 PTAGE: 25 years EKG: Sinus rhythm NONSPECIFIC T-WAVE ABNORMALITY When compared to previous tracing, there has been some slight Variati on of nonspecific ST-T wave changes and resolution of Sinus tachycardia, but no other significan seri al change. BORDERLINE ECG PREVIOUS TRACING : 09/12/2016 14.01 DOCTOR: Azucena Pugh Interpretating Date/Time 09/25/2016 16:29:30
== END 2016-09-25 00:41 | disposition home or self-care (01) ==
LOC: NEPC 21:50
DX: R91.8 Other nonspecific abnormal finding of lung field (principal); R94.31 Abnormal electrocardiogram [ECG] [EKG]
CPT/HCPCS: 71020; 80048; 83605; 84703; 85025; 85379; 87040; 93005; 96365; 99283; J0696; J7040

== ENCOUNTER 2017-02-27 22:22 | Emergency (ER) | payer OTHER ==
[2017-02-27 22:24] VITALS: BP 105/80; TEMP 99; O2SAT 99
--- NOTE | 2017-02-28 01:07 | PD ---
HPI Chief Complaint: Complaint Time Seen by Provider: 01:02 Travel History International Travel<30 days: No Contact w/Intl Traveler<30days: No Traveled to known affect area: No History of Present Illness HPI PATIENT STATES THAT SHE HAS HAD URGENCY, FREQUENCY, SUPRAPUBIC PRESSURE, NONRAD , 5/10, AND SOME DYSURIA ALSO FOR PAST 3 DAYS OR SO. DENIES ALLEVIATING/ AGGRAVATING FACTORS. ALL: NKDA PMHX: ASTHMA PSHX: C SEXN PFSH Past Medical History Asthma: Yes Cancer: No Cardiovascular Problems: No Diminished Hearing: No Endocrine: No Immune Disorder: No Musculoskeletal: No Neurologic: No Psychiatric: No Reproductive: No Respiratory: Yes (ASTHMA) Immunizations Current: Yes Tetanus Vaccination: Unknown Influenza Vaccination: No ?: Not : 4 Para: 4 Past Surgical History Section: Yes (x1) Gynecologic Surgery: Yes Social History Alcohol Use: Yes Tobacco Use: No Substance Use: No Allergies-Medications (Allergen,Severity, Reaction): Coded Allergies: No Known Allergies (Verified , 02/27/17) Reported Meds & Prescriptions Reported Meds & Active Scripts Active No Active Prescriptions or Reported Medications Review of Systems Except as stated in HPI: all other systems reviewed are Neg Genitourinary: Positive: Urgency, Frequency, Dysuria Physical Exam Narrative GENERAL: SKIN: Warm and dry. HEAD: Atraumatic. Normocephalic. EYES: Pupils equal and round. No scleral icterus. No injection or drainage. ENT: No nasal bleeding or discharge. Mucous membranes pink and moist. NECK: Trachea midline. No JVD. CARDIOVASCULAR: Regular rate and rhythm. RESPIRATORY: No accessory muscle use. Clear to auscultation. Breath sounds equal bilaterally. GASTROINTESTINAL: Abdomen soft, non-tender, nondistended. MUSCULOSKELETAL: Extremities without clubbing, cyanosis, or edema. No obvious deformities. NEUROLOGICAL: Awake and alert. No obvious cranial nerve deficits. Motor grossly within normal limits. Five out of 5 muscle strength in the arms and legs. Normal speech. PSYCHIATRIC: Appropriate mood and affect; insight and judgment normal. Data Data Last Documented VS Vital Signs Date Time Temp Pulse Resp B/P (MAP) Pulse Ox O2 Delivery O2 Flow Rate FiO2 02/27/17 22:24 99.0 70 16 105/80 (88) 99 Orders Orders Urinalysis - C+S If Indicated (02/28/17 01:06) Ed Urine Pregnancytest Poc (02/28/17 01:06) Urine Culture (02/28/17 01:07) Labs Laboratory Tests Test 02/28/17 01:07 Urine Color YELLOW Urine Turbidity HAZY Urine pH 5.5 Urine Specific [place] 1.026 Urine Protein 30 mg/dL Urine Glucose (UA) NEG mg/dL Urine Ketones NEG mg/dL Urine Occult Blood MOD Urine Nitrite POS Urine Bilirubin NEG Urine Urobilinogen LESS THAN 2.0 MG/DL Urine Leukocyte Esterase SMALL Urine RBC 165 /hpf Urine WBC 24 /hpf Urine Squamous Epithelial Cells 1 /hpf Urine Amorphous Sediment RARE Urine Bacteria MANY /hpf Urine Mucus FEW /lpf Microscopic Urinalysis Comment CULTURE INDICATED MDM Medical Decision Making Medical Screen Exam Complete: Yes Emergency Medical Condition: Yes Medical Record Reviewed: Yes Differential Diagnosis RELATED V UTI Narrative Course NEG TEST AND UA C/W UTI, PT IS TOLERATING PO AND WILL D/C ON PO ABX Diagnosis Primary Impression: UTI Patient Instructions: General Instructions, Urinary Tract Infection in Women ( ED) Scripts Fluconazole (Fluconazole) 150 Mg Tab 150 MG PO ONCE for Infection, #1 TAB 0 Refills Prov: Deon Garrison MD 02/28/17 Nitrofurantoin Monohydrate Macrocrystals (Macrobid) 100 Mg Cap 100 MG PO BID for Infection for 10 Days, #20 CAP 0 Refills Prov: Deon Garrison MD 02/28/17 Disposition: 01 DISCHARGE HOME Condition: Stable Deon Garrison MD Feb 28, 2017 01:07
[2017-02-28 01:27] LABS: BACTERIA, URINE MANY /hpf; BLOOD, URINE MOD (NEG); COMMENT (UR) CULTURE INDICATED; CULTURE IF INDICATED CULTURE INDICATED; GLUCOSE,URINE NEG (NEG); KETONE, URINE NEG (NEG); MUCUS URINE FEW /lpf (OCC); NITRITE,URINE POS (NEG); PH, URINE 5.5 (5.0-8.5); SQUAMOUS EPITHELIAL CELL URINE 1 /hpf (0-5); URINE COLOR YELLOW (YELLW/STRAW)
[2017-02-28] MEDS ORDERED: FLUC150T PO (02:04)
[2017-02-28] MEDS ORDERED: MACR100C2 PO (02:04)
[2017-02-28 02:27] VITALS: BP 108/70; PULSE 82; RESP 18; O2SAT 99
== END 2017-02-28 02:32 | disposition home or self-care (01) ==
LOC: NEPE 22:22
DX: N39.0 Urinary tract infection, site not specified (principal); B96.20 Unspecified Escherichia coli [E. coli] as the cause of diseases classified elsewhere; J45.909 Unspecified asthma, uncomplicated
CPT/HCPCS: 81001; 84703; 87077; 87086; 87186; 99284

== ENCOUNTER 2017-04-11 15:57 | Emergency (ER) | payer OTHER ==
[~2017-04-11 15:57] MED LIST changes: +FLUC150T PO; -LEVA500T PO; +MACR100C2 PO
[2017-04-11 15:59] VITALS: BP 109/69; PULSE 75; RESP 16; TEMP 97.6; O2SAT 100
--- NOTE | 2017-04-11 17:09 | PD ---
HPI Chief Complaint: Assistant Controller Problem/Complaint Time Seen by Provider: 16:25 Travel History International Travel<30 days: No Contact w/Intl Traveler<30days: No Traveled to known affect area: No History of Present Illness HPI 26-year-old female presents to the emergency room for evaluation of vaginal rash and foul-smelling vaginal discharge/odor for the past few days. States she has been applying hydrocortisone cream which has significantly improved her symptoms. Denies dysuria, urgency, frequency, abdominal pain, or pelvic pain. Last menstrual cycle was one week ago. She denies any other chronic medical conditions or daily medications. She is concerned for STD. She has one sexual partner. PFSH Past Medical History Asthma: Yes Cancer: No Cardiovascular Problems: No Diminished Hearing: No Endocrine: No Immune Disorder: No Musculoskeletal: No Neurologic: No Psychiatric: No Reproductive: No Respiratory: Yes (ASTHMA) Immunizations Current: Yes Tetanus Vaccination: < 5 Years Influenza Vaccination: No ?: Not LMP: 04/01/17 : 4 Para: 4 Miscarriage: 0 : 0 Past Surgical History Section: Yes (x1) Gynecologic Surgery: Yes (COLPOSCOPY) Social History Alcohol Use: Yes Tobacco Use: No Substance Use: No Allergies-Medications (Allergen,Severity, Reaction): Coded Allergies: No Known Allergies (Verified Adverse Reaction, Unknown, 04/11/17) Reported Meds & Prescriptions Reported Meds & Active Scripts Active Diflucan (Fluconazole) 150 Mg Tab 150 Mg PO ONCE Review of Systems Except as stated in HPI: all other systems reviewed are Neg Physical Exam Narrative GENERAL: Well-nourished, well-developed female in no acute distress. Afebrile. Ambulatory. SKIN: Focused skin assessment warm/dry. HEAD: Normocephalic. EYES: No scleral icterus. No injection or drainage. NECK: Supple, trachea midline. No JVD or lymphadenopathy. CARDIOVASCULAR: Regular rate and rhythm without murmurs, gallops, or rubs. RESPIRATORY: Breath sounds equal bilaterally. No accessory muscle use. GASTROINTESTINAL: Abdomen soft, non-tender, nondistended. GENITOURINARY: Examined in the presence of a nurse. Normal external genitalia without lesions. Mild erythema around the labia majora. Vaginal vault without blood but with moderate drainage. Cervical os was closed with drainage. No cervical motion tenderness. Uterus nontender and nonenlarged. Bilateral adnexa nontender without masses. Data Data Last Documented VS Vital Signs Date Time Temp Pulse Resp B/P (MAP) Pulse Ox O2 Delivery O2 Flow Rate FiO2 04/11/17 15:59 97.6 75 16 109/69 (82) 100 Room Air Orders Orders Gc And Chlamydia Pcr (04/11/17 16:38) Wet Prep Profile (04/11/17 16:38) Ua Includes Microscopic (04/11/17 16:38) Ed Urine Pregnancytest Poc (04/11/17 16:38) Ed Discharge Order (04/11/17 17:54) Azithromycin Powd Pack (Zithromax Powd P (04/11/17 18:00) Ceftriaxone Inj (Rocephin Inj) (04/11/17 18:00) Lidocaine 1% Inj (50 Ml) (Xylocaine 1% I (04/11/17 18:00) Labs Laboratory Tests Test 04/11/17 17:00 Urine Color LIGHT-YELLOW Urine Turbidity CLEAR Urine pH 6.0 Urine Specific [place] 1.013 Urine Protein NEG mg/dL Urine Glucose (UA) NEG mg/dL Urine Ketones NEG mg/dL Urine Occult Blood NEG Urine Nitrite NEG Urine Bilirubin NEG Urine Urobilinogen LESS THAN 2.0 MG/DL Urine Leukocyte Esterase NEG Urine WBC LESS THAN 1 /hpf Urine Squamous Epithelial Cells 1 /hpf Clue Cells (Wet Prep) NONE SEEN Vaginal Trichomonas (Wet Prep) NONE SEEN Vaginal Yeast (Wet Prep) NONE SEEN MDM Medical Decision Making Medical Screen Exam Complete: Yes Emergency Medical Condition: Yes Medical Record Reviewed: Yes Differential Diagnosis Yeast infection, STD, UTI Narrative Course 26-year-old female presents to the emergency room for evaluation of foul- smelling vaginal discharge and itchy vagina for the past several days. Patient also wants to be tested for STDs. She denies any pelvic or abdominal pain. Denies dysuria, urgency, or frequency. LMP was one week ago. ED urine test is negative. Physical exam is reassuring. No abdominal tenderness to palpation. No CVA tenderness. Pelvic exam reveals some lichenification and erythema of the labia majora. There is mild discharge from the os. UA and wet prep are negative. GC and chlamydia ordered and pending. Patient treated empirically for both. Discharged with prescription for Diflucan. Told to follow-up with her [employer]S COUNTER PERSON or return for worsening symptoms. She understands and agrees to plan. Diagnosis Primary Impression: Vulvovaginal candidiasis [facility] Additional Instructions: Take Diflucan. Repeat in one week if symptoms persist. You were treated for gonorrhea and chlamydia today. Do not have unprotected sex. Follow-up with a health department. Return to the emergency room for worsening symptoms. Med/Other Pt SpecificInfo: Prescription(s) given Scripts Fluconazole (Diflucan) 150 Mg Tab 150 MG PO ONCE for Infection, #2 TAB 0 Refills Prov: Omar Abdul MD 04/11/17 Disposition: 01 DISCHARGE HOME Condition: Stable Tayler Gomez Apr 11, 2017 17:09
[2017-04-11 17:37] LABS: BLOOD, URINE NEG (NEG); GLUCOSE,URINE NEG (NEG); KETONE, URINE NEG (NEG); NITRITE,URINE NEG (NEG); SQUAMOUS EPITHELIAL CELL URINE 1 /hpf (0-5); URINE COLOR LIGHT-YELLOW (YELLW/STRAW)
[2017-04-11] MEDS ORDERED: DIFL150T PO (17:56)
[2017-04-11] MEDS ORDERED: LIDOCAINE HCL 1% 50 ML VIAL IM ONE (18:00)
[2017-04-11] MEDS ORDERED: cefTRIAXone 250 MG VIAL IM ONE (18:00)
[2017-04-11] MEDS ORDERED: AZITHROMYCIN PWD FOR SUSP 1 GM PACKET PO ONE (18:00)
[2017-04-11 19:17] VITALS: BP 120/75
[2017-04-11 19:34] LABS: CHLAMYDIA PCR NOT DETECTED (NOT DETECT); NEISSERIA PCR NOT DETECTED (NOT DETECT)
== END 2017-04-11 19:30 | disposition home or self-care (01) ==
LOC: NEPD 15:57
DX: B37.3 Candidiasis of vulva and vagina (principal)
CPT/HCPCS: 81001; 84703; 87210; 87491; 87591; 96372; 99285; J0696

== ENCOUNTER 2017-07-09 17:58 | Emergency (ER) | payer OTHER ==
[~2017-07-09] VITALS: Ht 160 cm; Wt 56.0 kg
[~2017-07-09 17:58] MED LIST changes: +DIFL150T PO; -FLUC150T PO; -MACR100C2 PO
[2017-07-09 17:59] VITALS: BP 118/56; PULSE 84; RESP 16; TEMP 98.4; O2SAT 99
[2017-07-09] MEDS ORDERED: SODIUM CHLORIDE 0.9% FLUSH 10 ML FLUSH IVF PRN (19:30)
[2017-07-09] MEDS ORDERED: RESP: ALBUTEROL 2.5 MG/IPRATROPIUM 0.5 MG NEB (SCH) INH ONE (19:30)
[2017-07-09] MEDS ORDERED: predniSONE 20 MG TAB PO ONE (19:30)
[2017-07-09] MEDS: SODIUM CHLOR 0.9% 1000 ML INJ 1,000 ML IV ONE ×2 (19:30→19:34)
[2017-07-09 19:31] VITALS: O2SAT 99
--- NOTE | 2017-07-09 19:33 | PD ---
HPI Chief Complaint: GI Complaint Time Seen by Provider: 19:11 Travel History International Travel<30 days: No Contact w/Intl Traveler<30days: No Traveled to known affect area: No History of Present Illness HPI 26 YO F with PMH of asthma presents to the ED for evaluation of ~10 day history of nonproductive cough, sore throat, sinus congestion, pleuritic CP. She endorses chills. She endorses intermittent 5/10 headaches with associated nausea. Denies fevers, SOB, abdominal pain, dysuria, vaginal discharge. LMP . She denies risk of . She treated her symptoms at home with albuterol inhaler and she took 800 mg ibuprofen yesterday. PFSH Past Medical History Asthma: Yes Cancer: No Cardiovascular Problems: No Diminished Hearing: No Endocrine: No Immune Disorder: No Musculoskeletal: No Neurologic: No Psychiatric: No Reproductive: No Respiratory: Yes (ASTHMA) Immunizations Current: Yes Tetanus Vaccination: Unknown Influenza Vaccination: No ?: Unknown LMP: JUN 04 : 4 Para: 4 Miscarriage: 0 : 0 Past Surgical History Section: Yes (x1) Gynecologic Surgery: Yes (COLPOSCOPY) Other Surgery: Yes Social History Alcohol Use: Yes Tobacco Use: No Substance Use: No Allergies-Medications (Allergen,Severity, Reaction): Coded Allergies: No Known Allergies (Verified Adverse Reaction, Unknown, 07/09/17) Reported Meds & Prescriptions Reported Meds & Active Scripts Active Keflex (Cephalexin) 500 Mg Cap 500 Mg PO Q12H 7 Days Review of Systems Except as stated in HPI: all other systems reviewed are Neg Physical Exam Narrative GENERAL: Well-nourished, well-developed female in no acute distress. SKIN: Warm and dry. HEAD: Normocephalic. Atraumatic. EYES: No scleral icterus. No injection or drainage. PERRLA. EOMI. ENT: Pearly salter tympanic membranes bilaterally. Nasal mucosa is moist. Oropharynx without erythema, edema or exudate. NECK: Supple, trachea midline. No JVD or lymphadenopathy. CARDIOVASCULAR: Regular rate and rhythm without murmurs, gallops, or rubs. RESPIRATORY: Breath sounds clear and equal bilaterally. No accessory muscle use. GASTROINTESTINAL: Abdomen soft, non-tender, nondistended. + Bowel sounds MUSCULOSKELETAL: No cyanosis, or edema. Moves extremities spontaneously. Walks with a normal gait. BACK: Nontender without obvious deformity. No CVA tenderness. Data Data Last Documented VS Vital Signs Date Time Temp Pulse Resp B/P (MAP) Pulse Ox O2 Delivery O2 Flow Rate FiO2 07/09/17 20:19 07/09/17 19:31 99 21 07/09/17 19:19 18 07/09/17 17:59 98.4 84 Orders Orders Chest, Single Ap (07/09/17 19:17) Prednisone (Deltasone) (07/09/17 19:30) Albuterol-Ipratropium Neb (Duoneb Neb) (07/09/17 19:30) Sodium Chloride 0.9% Flush (Ns Flush) (07/09/17 19:30) Ed Urine Pregnancytest Poc (07/09/17 19:17) Group A Rapid Strep Screen (07/09/17 19:17) Influenzae A/B Antigen (07/09/17 19:17) Urinalysis - C+S If Indicated (07/09/17 19:17) Sodium Chlor 0.9% 1000 Ml Inj (Ns 1000 M (07/09/17 19:30) Acetaminophen (Tylenol) (07/09/17 19:45) Strep Culture (Group A) (07/09/17 19:30) Ed Discharge Order (07/09/17 20:14) Labs Laboratory Tests Test 07/09/17 19:30 Urine Color YELLOW Urine Turbidity HAZY Urine pH 6.0 Urine Specific [place] 1.024 Urine Protein NEG mg/dL Urine Glucose (UA) NEG mg/dL Urine Ketones NEG mg/dL Urine Occult Blood NEG Urine Nitrite NEG Urine Bilirubin NEG Urine Urobilinogen LESS THAN 2.0 MG/DL Urine Leukocyte Esterase NEG Urine RBC 1 /hpf Urine WBC 3 /hpf Urine Squamous Epithelial Cells 3 /hpf Urine Bacteria OCC /hpf Urine Mucus FEW /lpf Microscopic Urinalysis Comment CULT NOT INDICATED MDM Medical Decision Making Medical Screen Exam Complete: Yes Emergency Medical Condition: Yes Differential Diagnosis Viral syndrome versus asthma exacerbation versus UTI versus versus other Narrative Course 26 YO F with PMH of asthma presents to the ED for evaluation of ~10 day history of nonproductive cough, sore throat, sinus congestion, pleuritic CP. She endorses chills. She endorses intermittent 5/10 headaches with associated nausea. Denies fevers, SOB, abdominal pain, dysuria, vaginal discharge. LMP . She denies risk of . She treated her symptoms at home with albuterol inhaler and she took 800 mg ibuprofen yesterday. Vitals reviewed. On exam patient's nontoxic appearing. No focal neuro deficits. I attempted to insert an IV, draw labs, hydrate the patient. She refuses at this time. Patient was administered 500 mg Tylenol by mouth. CXR: No acute disease per radiology read. UA: Hazy, occasional bacteria. No culture indicated. Flu swab negative. Rapid strep negative. ED urine test positive. This is the patient's fifth . Patient's prescribed 500 mg Keflex twice a day 7 days. She is instructed to take every pill until they're all gone, begin taking vitamins, follow with the emergency room clinician. She is stable and discharged home. Diagnosis Primary Impression: First trimester Additional Impression: Asymptomatic bacteriuria during Referrals: Cat Scan Technologist Patient Instructions: First Trimester (ED), General Instructions, Urinary Tract Infection in (ED) Additional Instructions: Rest, hydrate. Take antibiotics as prescribed until every pill is gone. Begin taking a vitamin daily. Follow-up with the emergency room clinician. Return to the ED for any urgent or emergent medical condition. Med/Other Pt SpecificInfo: Prescription(s) given Scripts Cephalexin (Keflex) 500 Mg Cap 500 MG PO Q12H for Infection for 7 Days, #14 CAP 0 Refills Prov: Abdirizak Murray MD 07/09/17 Disposition: DISCHARGE HOME Condition: Stable Henrietta Botello Jul 09, 2017 19:33
--- NOTE | 2017-07-09 19:41 | RADRPT ---
EXAM DATE/TIME: 07/09/2017 19:25 [facility] COMPARISON: No previous studies available for comparison. INDICATIONS : Short of breath. MEDICAL HISTORY : Asthma. SURGICAL HISTORY : None. ENCOUNTER: Initial ACUITY: 1 day PAIN SCORE: 0/10 LOCATION: Bilateral chest FINDINGS: A single view of the chest demonstrates the lungs to be symmetrically aerated without evidence of mas s, infiltrate or effusion. The cardiomediastinal contours are unremarkable. Osseous structures are intact. CONCLUSION: No acute disease. Eric Richards MD on July 09, 2017 at 19:39 Board Certified Radiologist. This report was verified electronically.
[2017-07-09] MEDS ORDERED: ACETAMINOPHEN 500 MG CPLT PO ONE (19:45)
[2017-07-09 19:56] LABS: BACTERIA, URINE OCC /hpf; BILIRUBIN, URINE NEG (NEG); BLOOD, URINE NEG (NEG); GLUCOSE,URINE NEG (NEG); KETONE, URINE NEG (NEG); MUCUS URINE FEW /lpf (OCC); NITRITE,URINE NEG (NEG); SQUAMOUS EPITHELIAL CELL URINE 3 /hpf (0-5); URINE COLOR YELLOW (YELLW/STRAW); URINE LEUKOCYTE ESTERASE NEG (NEG)
[2017-07-09] MEDS ORDERED: CEPH-460 PO (20:11)
== END 2017-07-09 20:20 | disposition home or self-care (01) ==
LOC: NEPC 17:58
DX: O26.891 Other specified pregnancy related conditions, first trimester (principal); R82.71 Bacteriuria; O99.511 Diseases of the respiratory system complicating pregnancy, first trimester; J45.909 Unspecified asthma, uncomplicated
CPT/HCPCS: 71045; 81001; 84703; 87081; 87804; 87880; 94664; 99284; J7512; J7030

== ENCOUNTER 2017-07-16 17:10 | Emergency (ER) | payer OTHER ==
[~2017-07-16] VITALS: Ht 160 cm; Wt 57.0 kg
[~2017-07-16 17:10] MED LIST changes: +CEPH-460 PO; -DIFL150T PO
[2017-07-16 17:18] VITALS: BP 97/61; PULSE 92; RESP 18; TEMP 97.1; O2SAT 99
[2017-07-16 17:22] VITALS: BP 97/61; PULSE 89; RESP 18; TEMP 97.1; O2SAT 99
[2017-07-16] MEDS ORDERED: SODIUM CHLOR 0.9% 1000 ML INJ 1,000 ML IV SCH (18:24)
[2017-07-16] MEDS ORDERED: SODIUM CHLORIDE 0.9% FLUSH 10 ML FLUSH IV FLUSH PRN (18:30)
[2017-07-16] MEDS ORDERED: ONDANSETRON HCL 4 MG/2 ML VIAL IVP ONE (18:30)
--- NOTE | 2017-07-16 18:30 | PD ---
HPI Chief Complaint: Abdominal Pain Time Seen by Provider: 18:15 Travel History International Travel<30 days: No Contact w/Intl Traveler<30days: No Traveled to known affect area: No History of Present Illness HPI 26-year-old female arrives complaining of abdominal pain primarily on the left side. Duration about a day. She describes scant discharge. No vaginal bleeding. She is known to be however has not followed with gynecology/ obstetrics. No fever or chills. Onset gradual. The patient reports nausea and vomiting however states that that is typical for her during normal course. PFSH Past Medical History Asthma: Yes Cancer: No Cardiovascular Problems: No Diminished Hearing: No Endocrine: No Immune Disorder: No Musculoskeletal: No Neurologic: No Psychiatric: No Reproductive: No Respiratory: Yes (ASTHMA) Immunizations Current: Yes Tetanus Vaccination: Unknown Influenza Vaccination: No ?: LMP: 05/28/17 : 5 Para: 4 Miscarriage: 0 : 0 Past Surgical History Section: Yes (x1) Gynecologic Surgery: Yes (COLPOSCOPY) Other Surgery: Yes Social History Alcohol Use: Yes (OOCASIONALLY ) Tobacco Use: No Substance Use: No Allergies-Medications (Allergen,Severity, Reaction): Coded Allergies: No Known Allergies (Verified Adverse Reaction, Unknown, 07/09/17) Reported Meds & Prescriptions Reported Meds & Active Scripts Active Keflex (Cephalexin) 500 Mg Cap 500 Mg PO Q12H 7 Days Review of Systems Except as stated in HPI: all other systems reviewed are Neg Physical Exam Narrative GENERAL: 26 female well-nourished well-developed no acute distress Vital Signs Date Time Temp Pulse Resp B/P (MAP) Pulse Ox O2 Delivery O2 Flow Rate FiO2 07/16/17 17:22 97.1 89 18 97/61 (73) 99 Room Air 07/16/17 17:18 97.1 92 18 97/61 (73) 99 SKIN: Warm and dry. GENITOURINARY: CMT is present. There is mild white discharge. There is no disruption of the vaginal mucosa. External genitalia normal. Os closed. HEAD: Atraumatic. Normocephalic. EYES: Pupils equal and round. No scleral icterus. No injection or drainage. ENT: No nasal bleeding or discharge. Mucous membranes pink and moist. NECK: Trachea midline. No JVD. CARDIOVASCULAR: Regular rate and rhythm. RESPIRATORY: No accessory muscle use. Clear to auscultation. Breath sounds equal bilaterally. GASTROINTESTINAL: Soft. Minimal tenderness lower abdomen left lower abdomen. MUSCULOSKELETAL: Extremities without clubbing, cyanosis, or edema. No obvious deformities. NEUROLOGICAL: Awake and alert. No obvious cranial nerve deficits. Motor grossly within normal limits. Five out of 5 muscle strength in the arms and legs. Normal speech. PSYCHIATRIC: Appropriate mood and affect; insight and judgment normal. Data Data Last Documented VS Vital Signs Date Time Temp Pulse Resp B/P (MAP) Pulse Ox O2 Delivery O2 Flow Rate FiO2 07/16/17 17:22 97.1 89 18 97/61 (73) 99 Room Air VS reviewed Orders Orders Ed Urine Pregnancytest Poc (07/16/17 17:29) Urinalysis - C+S If Indicated (07/16/17 17:29) Beta Hcg (Quant/Titer) (07/16/17 18:24) Complete Blood Count With Diff (07/16/17 18:24) Comprehensive Metabolic Panel (07/16/17 18:24) Lipase (07/16/17 18:24) Iv Access Insert/Monitor (07/16/17 18:24) Ecg Monitoring (07/16/17 18:24) Oximetry (07/16/17 18:24) Ondansetron Inj (Zofran Inj) (07/16/17 18:30) Sodium Chlor 0.9% 1000 Ml Inj (Ns 1000 M (07/16/17 18:24) Sodium Chloride 0.9% Flush (Ns Flush) (07/16/17 18:30) Us Pelvis (Ques Preg/Ectopic) (07/16/17 ) Gc And Chlamydia Pcr (07/16/17 18:24) Wet Prep Profile (07/16/17 18:24) MDM Medical Decision Making Medical Screen Exam Complete: Yes Emergency Medical Condition: Yes Medical Record Reviewed: Yes Differential Diagnosis IUP, UTI, ectopic , ov torsion, appendicitis, TOA, cervicitis, BV, Trichomoniasis, ov cyst, hernia, mittelschmerz, pain from menstruation Narrative Course Empiric treatment started US pending UA pending Labwork started d/w oncoming provider Andrea Perkins MD Jul 16, 2017 18:30
[2017-07-16] MEDS ORDERED: LIDOCAINE HCL 1% 50 ML VIAL IM ONE (18:45)
[2017-07-16] MEDS ORDERED: AZITHROMYCIN PWD FOR SUSP 1 GM PACKET PO ONE (18:45)
--- NOTE | 2017-07-16 20:17 | PD ---
Physical Exam Narrative Patient was seen by ED physician and signed out to me. NUCLEAR INSTRUCTOR exam done by Dr. Perkins. Patient refused blood test today. Urine test last week was positive. I spoke with the patient about the blood test. Patient refused blood test. Patient agreed to pelvic ultrasound, transabdominal without transvaginal ultrasound. Data Data Last Documented VS Vital Signs Date Time Temp Pulse Resp B/P (MAP) Pulse Ox O2 Delivery O2 Flow Rate FiO2 07/16/17 17:22 97.1 89 18 97/61 (73) 99 Room Air Orders Orders Ed Urine Pregnancytest Poc (07/16/17 17:29) Urinalysis - C+S If Indicated (07/16/17 17:29) Beta Hcg (Quant/Titer) (07/16/17 18:24) Complete Blood Count With Diff (07/16/17 18:24) Comprehensive Metabolic Panel (07/16/17 18:24) Lipase (07/16/17 18:24) Iv Access Insert/Monitor (07/16/17 18:24) Ecg Monitoring (07/16/17 18:24) Oximetry (07/16/17 18:24) Ondansetron Inj (Zofran Inj) (07/16/17 18:30) Sodium Chlor 0.9% 1000 Ml Inj (Ns 1000 M (07/16/17 18:24) Sodium Chloride 0.9% Flush (Ns Flush) (07/16/17 18:30) Us Pelvis (Ques Preg/Ectopic) (07/16/17 ) Gc And Chlamydia Pcr (07/16/17 18:24) Wet Prep Profile (07/16/17 18:24) Azithromycin Powd Pack (Zithromax Powd P (07/16/17 18:45) Lidocaine 1% Inj (50 Ml) (Xylocaine 1% I (07/16/17 18:45) Ceftriaxone Inj (Rocephin Inj) (07/16/17 18:45) Ed Discharge Order (07/16/17 22:50) Labs Laboratory Tests Test 07/16/17 18:30 07/16/17 21:50 Clue Cells (Wet Prep) PRESENT Vaginal Trichomonas (Wet Prep) NONE SEEN Vaginal Yeast (Wet Prep) NONE SEEN Chlamydia trachomatis DNA (PCR) NOT DETECTED Neisseria gonorrhoeae DNA (PCR) NOT DETECTED MDM Supervised Visit with SARIKA: No Interpretation(s) Last Impressions Pelvis Ultrasound 07/16/17 0000 Signed Impressions: Service Date/Time: Sunday, July 16, 2017 20:02 - CONCLUSION: 1. Positive intrauterine of 5 weeks 5 days by crown-rump length and gestational sac size. The heart rate identified at this time. Eric Richards MD Narrative Course 22:52 PM. Patient decides to leave. Patient does not want to wait for the UA results. Diagnosis Primary Impression: Pelvic pain during Patient Instructions: General Instructions Additional Instruction: Tylenol for pain. Follow-up with OB physician. Return if increasing pelvic pain, vaginal bleeding. Med/Other Pt SpecificInfo: No Meds Exist/No RX given Scripts No Active Prescriptions or Reported Meds Disposition: 01 DISCHARGE HOME Condition: Stable Troy Foley MD Jul 16, 2017 20:17
--- NOTE | 2017-07-16 20:53 | RADRPT ---
EXAM DATE/TIME: 07/16/2017 20:02 [facility] COMPARISON: No previous studies available for comparison. INDICATIONS : Pelvic pain. LAB(S): Beta-hCG: unable to obtain MEDICAL HISTORY : Asthma. Dyspnea. SURGICAL HISTORY : section. Colonoscopy. ENCOUNTER: Initial ACUITY: 3 days PAIN SCORE: 3/10 LOCATION: Bilateral pelvis MEASUREMENTS: UTERUS: 9.5 x 8.6 x 6.4 cm ENDOMETRIAL STRIPE: 14 mm RIGHT OVARY: 2.8 x 2.4 x 1.9 cm LEFT OVARY: 3.0 x 2.1 x 2.5 cm FREE FLUID: Yes cul de sac CROWN RUMP LENGTH: 0.2 = 5 WKS 5 DAYS FINDINGS: Gestational age is 5 weeks 5 days by crown-rump length and gestational sac size. No heart rate identified probably due to early dates. Yolk sac present. Ovaries unremarkable. Trace free fluid in the cul-de-sac. CONCLUSION: 1. Positive intrauterine of 5 weeks 5 days by crown-rump length and gestational sac size. T he heart rate identified at this time. Eric Richards MD on July 16, 2017 at 20:49 Board Certified Radiologist. This report was verified electronically.
[2017-07-16 23:14] LABS: BACTERIA, URINE MOD /hpf; BILIRUBIN, URINE NEG (NEG); BLOOD, URINE NEG (NEG); GLUCOSE,URINE NEG (NEG); KETONE, URINE NEG (NEG); NITRITE,URINE NEG (NEG); SQUAMOUS EPITHELIAL CELL URINE 2 /hpf (0-5); URINE COLOR LIGHT-YELLOW (YELLW/STRAW); URINE LEUKOCYTE ESTERASE NEG (NEG)
== END 2017-07-16 22:56 | disposition home or self-care (01) ==
LOC: NEPE 17:10
DX: O26.891 Other specified pregnancy related conditions, first trimester (principal); R10.2 Pelvic and perineal pain; Z3A.01 Less than 8 weeks gestation of pregnancy
CPT/HCPCS: 76700; 81001; 84703; 87086; 87210; 87491; 87591; 99284

== ENCOUNTER 2017-09-07 08:39 | Emergency (ER) | payer OTHER ==
[2017-09-07 08:43] VITALS: BP 109/74; PULSE 100; RESP 16; TEMP 98.2; O2SAT 100
--- NOTE | 2017-09-07 11:12 | PD ---
HPI Chief Complaint: Related Problem Time Seen by Provider: 11:00 Travel History International Travel<30 days: No Contact w/Intl Traveler<30days: No Traveled to known affect area: No History of Present Illness HPI Examined in the presence of the nurse at all times. This is a 26-year-old who is 13 weeks 2 days based on her last ultrasound on our record on July 16. She presents for evaluation of pelvic pain. Symptoms started yesterday. She describes it as an intermittent crampy sensation with no obvious aggravating or relieving factors. She endorses some nausea. She reports some loose watery stools. Denies dysuria, hematuria, vaginal bleeding, vaginal discharge, fevers or chills, flank pain. She reports that her port drier is Dr. Barriga. No other complaints at this time. PFSH Past Medical History Asthma: Yes Cancer: No Cardiovascular Problems: No Diminished Hearing: No Endocrine: No Immune Disorder: No Musculoskeletal: No Neurologic: No Psychiatric: No Reproductive: No Respiratory: Yes (ASTHMA) Immunizations Current: Yes ?: LMP: 05/28/17 : 5 Para: 4 Miscarriage: 0 : 0 Past Surgical History Section: Yes (x1) Gynecologic Surgery: Yes (COLPOSCOPY) Other Surgery: Yes Social History Alcohol Use: Yes (OOCASIONALLY ) Tobacco Use: No Substance Use: No Allergies-Medications (Allergen,Severity, Reaction): Coded Allergies: No Known Allergies (Verified Adverse Reaction, Unknown, 09/07/17) Reported Meds & Prescriptions Reported Meds & Active Scripts Active Flagyl (Metronidazole) 500 Mg Tab 500 Mg PO BID 7 Days Review of Systems Except as stated in HPI: all other systems reviewed are Neg Physical Exam Narrative GENERAL: Well-developed well-nourished female no acute distress SKIN: Warm and dry. HEAD: Atraumatic. Normocephalic. EYES: Pupils equal and round. No scleral icterus. No injection or drainage. ENT: No nasal bleeding or discharge. Mucous membranes pink and moist. NECK: Trachea midline. No JVD. CARDIOVASCULAR: Regular rate and rhythm. No murmur appreciated. RESPIRATORY: No accessory muscle use. Clear to auscultation. Breath sounds equal bilaterally. GASTROINTESTINAL: Abdomen soft, non-tender, nondistended. Hepatic and splenic margins not palpable. MUSCULOSKELETAL: No obvious deformities. No clubbing. No cyanosis. No edema. NEUROLOGICAL: Awake and alert. No obvious cranial nerve deficits. Motor grossly within normal limits. Normal speech. PSYCHIATRIC: Appropriate mood and affect; insight and judgment normal. Data Data Last Documented VS Vital Signs Date Time Temp Pulse Resp B/P (MAP) Pulse Ox O2 Delivery O2 Flow Rate FiO2 09/07/17 08:43 98.2 100 16 109/74 (86) 100 Orders Orders Urinalysis - C+S If Indicated (09/07/17 11:09) Ed Discharge Order (09/07/17 11:39) Labs Laboratory Tests Test 09/07/17 11:10 Urine Color YELLOW Urine Turbidity CLEAR Urine pH 5.5 Urine Specific [place] 1.027 Urine Protein TRACE mg/dL Urine Glucose (UA) NEG mg/dL Urine Ketones NEG mg/dL Urine Occult Blood NEG Urine Nitrite NEG Urine Bilirubin NEG Urine Urobilinogen LESS THAN 2.0 MG/DL Urine Leukocyte Esterase NEG Urine RBC LESS THAN 1 /hpf Urine Squamous Epithelial Cells 4 /hpf Urine Bacteria RARE /hpf Urine Mucus FEW /lpf Microscopic Urinalysis Comment CULT NOT INDICATED MDM Medical Decision Making Medical Screen Exam Complete: Yes Emergency Medical Condition: Yes Medical Record Reviewed: Yes Differential Diagnosis Intrauterine , round ligament pain, ectopic , UTI, appendicitis, tubo-ovarian abscess, cervicitis, pelvic inflammatory disease, miscarriage Narrative Course 26-year-old female who is 13 weeks 2 days presents with 2 days of pelvic pain. Physical examination is reassuring. Her abdomen is soft and benign. I reviewed her records. She has been seen here complaining of similar pain in July 16. She had a normal intrauterine ultrasound at that time. Wet prep was positive for clue cells however she decided to leave prior to treatment at that time. Bedside ultrasound at this time reveals an intrauterine with heart rate of 130. Patient is stable for discharge and outpatient follow-up with her port drier. She will be given Flagyl for her previously recognized bacterial vaginosis. Diagnosis Primary Impression: Pelvic pain during Additional Instructions: Medication as prescribed. Take Tylenol for pain per dosing instructions on the bottle. Follow-up with your port drier. Return for any emergent medical conditions. Med/Other Pt SpecificInfo: Prescription(s) given Scripts Metronidazole (Flagyl) 500 Mg Tab 500 MG PO BID for Infection for 7 Days, #14 TAB 0 Refills Prov: Troy Foley MD 09/07/17 Disposition: 01 DISCHARGE HOME Condition: Stable Ken Olvera Sep 07, 2017 11:12
[2017-09-07 11:35] LABS: BACTERIA, URINE RARE /hpf; BILIRUBIN, URINE NEG (NEG); BLOOD, URINE NEG (NEG); GLUCOSE,URINE NEG (NEG); KETONE, URINE NEG (NEG); MUCUS URINE FEW /lpf (OCC); NITRITE,URINE NEG (NEG); PH, URINE 5.5 (5.0-8.5); SQUAMOUS EPITHELIAL CELL URINE 4 /hpf (0-5); URINE COLOR YELLOW (YELLW/STRAW); URINE LEUKOCYTE ESTERASE NEG (NEG)
[2017-09-07] MEDS ORDERED: METR-1 PO (11:40)
== END 2017-09-07 13:25 | disposition home or self-care (01) ==
LOC: NEPC 08:39
DX: O26.891 Other specified pregnancy related conditions, first trimester (principal); R10.2 Pelvic and perineal pain; R11.0 Nausea; R19.7 Diarrhea, unspecified; O99.511 Diseases of the respiratory system complicating pregnancy, first trimester; J45.909 Unspecified asthma, uncomplicated; Z3A.13 13 weeks gestation of pregnancy
CPT/HCPCS: 81001; 99283

== ENCOUNTER 2018-01-22 00:21 | Inpatient (IN) ==
[2018-01-22] MEDS ORDERED: fentaNYL Citrate Inj 100 MCG/2 ML Ampul IV.PUSH ONE (00:59)
[2018-01-22 01:00] VITALS: RESP 18
[2018-01-22] MEDS ORDERED: Sod Chloride 0.9% Inj 1,000 ML IV.CONT PRN (01:03)
[2018-01-22] MEDS ORDERED: Naloxone Inj 0.4 MG/ML Vial IV.PUSH PRN ×2 (01:03→09:14)
[2018-01-22] MEDS ORDERED: Sodium Chlor 0.9% Inj 500 ML IV.SIG PRN (01:03)
[2018-01-22] MEDS ORDERED: fentaNYL Citrate Inj 100 MCG/2 ML Ampul IV.PUSH PRN ×2 (01:03)
[2018-01-22] MEDS ORDERED: Oxytocin 30 Units/500ml Premix 30 UNITS/500 ML BAG IV.SIG ONE (01:03)
[2018-01-22] MEDS ORDERED: Penicillin G Potassium Inj 5,000,000 UNIT in Sodium Chloride 0.9% Inj 100 ML IV.SIG ONE (01:03)
--- NOTE | 2018-01-22 01:10 | P.HPOB ---
History of Present Illness Primary Care Physician: No Primary Care Physician Dr. Ventura Chief Complaint: Abdominal pain History of Present Illness: Patient is a 27-year-old black female previous last baby, vaginal deliveries prior to that,now [address] Ventura @ [facility] and complains of abdominal pain that began today worsened. She is having regular contractions on the monitor heart rate tracing is reactive. She denies bleeding or leakage of fluid. However on exam patient is 7 cm dilated Weeks Gestation:: 34 Para: 4 (Last last baby was section) : 5 Review of Systems Constitutional: Denies anorexia, Denies body ache(s), Denies chills, Denies daytime sleepiness, Denies excessive sweating, Denies fatigue, Denies fever(s), Denies headache(s), Denies increased appetite, Denies lack of energy, Denies malaise, Denies night sweats, Denies weakness, Denies weight gain, Denies weight loss, Denies other Cardiovascular: Denies bluish discoloration of hand/feet, Denies chest pain, Denies chest pain at rest, Denies chest pain with activity, Denies excessive sweating, Denies fainting, Denies fast heart rate, Denies foot swelling, Denies generalized swelling, Denies irregular heart rhythm, Denies leg pain with activity, Denies leg sores, Denies leg swelling, Denies lightheadedness, Denies radiating jaw, neck or arm pain, Denies rapid, pounding, or irregular heartbeat , Denies shortness of breath, Denies shortness of breath with activity, Denies shortness of breath when lying down, Denies shortness of breath causing sudden awakening, Denies slow heart rate, Denies other Respiratory: Denies change in phlegm color, Denies chest congestion, Denies cough, Denies coughing up blood, Denies excessive phlegm production, Denies pain on inspiration, Denies pain with cough, Denies shortness of breath, Denies shortness of breath with activity, Denies snoring, Denies stridor, Denies wheezing, Denies other Gastrointestinal: Reports abdominal pain, Denies belching, Denies black, tarry stools, Denies bloating, Denies bright, red blood in stools, Denies change in bowel habits, Denies constant urge to pass stool, Denies change in stools, Denies coffee ground vomit, Denies constipation, Denies cramping, Denies difficulty swallowing, Denies excessive passing of gas, Denies feeling full early, Denies heartburn, Denies incontinent of stools, Denies loose stools, Denies nausea, Denies pain with swallowing, Denies vomiting, Denies vomiting blood, Denies other Musculoskeletal: Denies abnormal walking, Denies back pain, Denies body aches, Denies decreased muscle mass, Denies deformity, Denies joint pain, Denies joint swelling, Denies limited joint movement, Denies loss of height, Denies muscle cramps, Denies muscle weakness, Denies neck pain, Denies numbness, Denies radiating pain into limb, Denies stiffness, Denies tingling, Denies other Neurologic: Denies abnormal hearing, Denies abnormal movements, Denies abnormal speech, Denies abnormal walking, Denies behavioral changes, Denies burning sensations, Denies confusion, Denies dizziness, Denies fainting, Denies frequent falls, Denies headache(s), Denies lack of coordination, Denies localized weakness, Denies loss of vision, Denies memory loss, Denies numbness, Denies other visual disturbances, Denies radiating pain, Denies restless legs, Denies convulsions, Denies seizure-like activity, Denies sensory deficit, Denies tingling, Denies tingling/numbness/burning sensations, Denies tremor(s), Denies unsteadiness, Denies weakness, Denies other PMFSH - Medical History Medical History: Medical History (Last Updated 01/22/18 @ 01:11 by Lazarus Cummings MD) Previous section complicating - Tobacco History Smoking Status: Never smoker - Alcohol History How Often Do You Have a Drink Containing Alcohol: Never - Substance Use History Substance History: No History of Abuse - Travel History History of Recent Travel: No Recent Travel in the [place] Within the Last 8 Weeks: No Recent Travel Out of the Country Within the Last 8 Weeks: No Medications and Allergies Active Medications: Active Medications Lactated Ringer's (Lr 1000 Ml Inj) 1,000 mls @ 125 mls/hr IV.CONT .Q8H [facility] Sodium Chloride (Ns Flush) 2 ml IV.FLUSH BID [facility] Sodium Chloride (Ns Flush) 2 ml IV.FLUSH PRN PRN PRN Reason: FLUSH AFTER USING IV ACCESS Terbutaline Sulfate (Brethine Inj) 0.25 mg SQ ONCE PRN PRN Reason: ABDOMINAL CRAMPING Allergies Allergy/AdvReac Type Severity Reaction Status Date / Time No Known Allergies AdvReac Unknown Uncoded 09/07/17 11:06 Exam Vital signs: Vital Signs 01/22/18 00:49 01/22/18 00:59 Temperature 98.0 F Pulse Rate 99 H Respiratory Rate 18 Blood Pressure 108/69 - Constitutional mild distress - Routine HEENT Exam Head: Present: normocephalic, atraumatic Eye: Present: PERRL - Routine Respiratory Exam Present: CTA bilaterally - Routine Cardiovascular Exam Present: RRR, S1, S2 - Routine Exam Comments: Cervix is 7/90/-2/cephalic - Routine Neurological Exam Present: alert, oriented X3, CN II-XII intact Caprini VTE Risk Assessment Caprini VTE Risk Assessment: No/Low Risk (score <= 1) Caprini Risk Assessment Model: Point Value = 1 Point Value = 2 Point Value = 3 Point Value = 5 Age 41-60 Minor surgery BMI > 25 kg/m2 Swollen legs Varicose veins or History of unexplained or recurrent spontaneous Oral contraceptives or hormone replacement Sepsis (< 1 month) Serious lung disease, including pneumonia (< 1 month) Abnormal pulmonary function Acute myocardial infarction Congestive heart failure (< 1 month) History of inflammatory bowel disease Medical patient at bed rest Age 61-74 Arthroscopic surgery Major open surgery (> 45 min) Laparoscopic surgery (> 45 min) Malignancy Confined to bed (> 72 hours) Immobilizing plaster cast Central venous access Age >= 75 History of VTE Family history of VTE Factor V Leiden Prothrombin [id number] Lupus anticoagulant Anticardiolipin antibodies Elevated serum homocysteine Heparin-induced thrombocytopenia Other congenital or acquired thrombophilia Stroke (< 1 month) Elective arthroplasty Hip, pelvis, or leg fracture Acute spinal cord injury (< 1 month) Prophylaxis Regimen: Total Risk Factor Score Risk Level Prophylaxis Regimen 0-1 Low Early ambulation 2 Moderate Order ONE of the following: *Sequential Compression Device (SCD) *Heparin 5000 units SQ BID 3-4 Higher Order ONE of the following medications: *Heparin 5000 units SQ TID *Enoxaparin/Lovenox 40 mg SQ daily (WT < 150 kg, CrCl > 30 mL/min) *Enoxaparin/Lovenox 30 mg SQ daily (WT < 150 kg, CrCl > 10-29 mL/min) *Enoxaparin/Lovenox 30 mg SQ BID (WT < 150 kg, CrCl > 30 mL/min) AND/OR *Sequential Compression Device (SCD) 5 or more Highest Order ONE of the following medications: *Heparin 5000 units SQ TID (Preferred with Epidurals) *Enoxaparin/Lovenox 40 mg SQ daily (WT < 150 kg, CrCl > 30 mL/min) *Enoxaparin/Lovenox 30 mg SQ daily (WT < 150 kg, CrCl > 10-29 mL/min) *Enoxaparin/Lovenox 30 mg SQ BID (WT < 150 kg, CrCl > 30 mL/min) AND *Sequential Compression Device (SCD) Assessment and Plan - Diagnosis (1) labor in third trimester Code(s): O60.03 - labor without delivery, third trimester Status: Acute (2) 34 weeks gestation of Code(s): Z3A.34 - 34 weeks gestation of Status: Acute (3) Previous section Code(s): Z98.891 - History of uterine scar from previous surgery Status: Acute - Plan This multiparous patient is 34 weeks gestation and is a previous section but had other vaginal deliveries prior to that and now presents in active labor cervix is 7 cm dilated cephalic presentation and now wishes to this baby Plan is admission to labor and delivery, anticipate vaginal delivery/, will notify her private OB doctor
[2018-01-22] MEDS ORDERED: Citric Acid/Sodium Citrate Liq 30 ML UDC PO SCH (01:15)
[2018-01-22] MEDS ORDERED: Betamethasone Sod Phos/Acetate Inj 30 MG/5 ML Vial IM SCH (01:45)
[2018-01-22 01:51] LABS: Baso # (Auto) 0.1 th/mm3 (0.0-0.2); Baso % (Auto) 0.3 % (0.0-2.0); Eos # (Auto) 0.5 th/mm3 (0.0-0.4); Hematocrit 35.3 % (35.0-46.0); Hemoglobin 11.5 gm/dL (11.6-15.3); Lymph # (Auto) 2.4 th/mm3 (1.0-4.8); Lymph % (Auto) 13.9 % (9.0-44.0); Mean Corpuscular HGB Conc 32.5 % (32.0-36.0); Mean Corpuscular Volume 79.9 fL (80.0-100.0); Mean Platelet Volume 8.9 fL (7.0-11.0); Mono # (Auto) 1.3 th/mm3 (0.0-0.9); Mono % (Auto) 7.3 % (0.0-8.0); Neut % (Auto) 75.5 % (16.0-70.0); Platelet Count 254 th/mm3 (150-450); Red Blood Count 4.42 mil/mm3 (4.00-5.30); Red Cell Distribution Width 14.4 % (11.6-17.2); White Blood Count 17.2 th/mm3 (4.0-11.0)
[2018-01-22 03:55] LABS: Bilirubin,Urine Negative (Negative); Clarity,Urine Clear (Clear); Color,Urine Yellow (Yellw/Straw); Glucose,Urine (UA) Negative (Negative); Leukocyte Esterase,Urine Trace (Negative); Mucus,Urine Few /lpf (Occasional); Nitrite,Urine Negative (Negative); Specific Gravity,Urine 1.011 (1.002-1.035); Squamous Epithelial Cell,Urine <1 /hpf (0-5)
[2018-01-22 03:59] LABS: Amphetamine Urine With Conf Neg (Neg); Benzodiazepine Urine With Conf Neg (Neg)
[2018-01-22] MEDS: Penicillin G Potassium Inj 2,500,000 UNIT in Sodium Chlor 0.9% Inj 100 ML IV.SIG SCH ×2 (07:03→10:13)
[2018-01-22] MEDS ORDERED: Oxytocin 30 Units/500ml Premix 30 UNITS/500 ML BAG IV.SIG PRN (08:22)
[2018-01-22] MEDS ORDERED: Witch Hazel 50%/Glyderin 12.5% 40 Pad Jar RECTAL PRN (09:14)
[2018-01-22] MEDS ORDERED: Oxytocin 30 Units/500ml Premix 30 UNITS/500 ML BAG IV.CONT PRN (09:14)
[2018-01-22] MEDS ORDERED: Zolpidem Tartrate 5 MG Tablet PO PRN (09:14)
[2018-01-22] MEDS ORDERED: Bisacodyl 10 MG Supp RECTAL PRN (09:14)
[2018-01-22] MEDS ORDERED: Benzocaine 20% Top Spray 60 ML Can TOPICAL PRN (09:14)
--- NOTE | 2018-01-22 09:14 | P.OBDELI ---
Weeks Gestation: 34 Patient Started Active Labor: Yes Medical Induction of Labor: No Artificial Rupture of Membrane: Yes (clear) Artificial ROM Date: 01/22/18 Artificial ROM Time: 07:40 Anesthesia: None Episiotomy: none Vaginal Delivery: Normal Presentation: Occiput anterior Nuchal Cord: None Delayed Cord Clamping (45 sec): Yes Placenta: Spontaneous delivery Laceration: None Estimated blood loss (mL): 200 Infant: Male Infant score (1 min): 8 score (5 min): 9
[2018-01-22] MEDS ORDERED: Diphtheria/Tetanus/Pertussis Vaccine Inj 0.5 ML Syringe IM ONE (16:00)
[2018-01-22] MEDS ORDERED: Measles/Mumps/Rubella Vaccine Inj 0.5 ML Vial SQ ONE (16:00)
[2018-01-23] MEDS: Penicillin G Potassium Inj 2,500,000 UNIT in Sodium Chlor 0.9% Inj 100 ML IV.SIG SCH ×5 (07:37→12:22)
[2018-01-23] MEDS: Senna/Docusate Sodium 8.6/50 MG Tablet PO SCH ×3 (07:38→19:15)
--- NOTE | 2018-01-23 08:13 | P.PNOB ---
Subjective Post day: 1 Interval history: Pt doing well, baby in nicu Objective Vital Signs/I&O: Vital Signs 01/22/18 09:15 01/22/18 09:31 01/22/18 09:38 Temperature Pulse Rate 99 H 64 Respiratory Rate 18 18 Blood Pressure 110/65 115/68 01/22/18 09:45 01/22/18 09:58 01/22/18 10:00 Temperature Pulse Rate 64 73 Respiratory Rate 18 Blood Pressure 113/63 105/64 01/22/18 10:15 01/22/18 12:22 01/22/18 20:00 Temperature 98.0 F 98.0 F Pulse Rate 77 94 H 70 Respiratory Rate 18 18 Blood Pressure 110/67 112/66 98/60 L Intake & Output 01/22/18 01/23/18 01/23/18 18:59 06:59 18:59 Weight 79 kg Result Diagrams: 01/22/18 01:15 Objective Remarks: GENERAL: Well-nourished, well-developed patient. CARDIOVASCULAR: Regular rate and rhythm without murmurs, gallops, or rubs. RESPIRATORY: Breath sounds equal bilaterally. No accessory muscle use. ABDOMEN/GI: Abdomen soft, non-tender. Fundus: Firm, non-tender at umbilicus. GENITOURINARY: Light to moderate bleeding. EXTREMITIES: No cyanosis or edema, non-tender, without signs of DVT. Medications and IVs: Active Medications Acetaminophen (Tylenol) 650 mg PO Q4H PRN PRN Reason: PAIN SCALE 1 TO 2 Al Hydroxide/Mg Hydroxide (Milk Of Magnesia Liq) 30 ml PO Q12H PRN PRN Reason: Mild Constipation Benzocaine (Americaine 20% Top [place]) 1 spray TOPICAL Q4H PRN PRN Reason: For Perineum Discomfort Bisacodyl (Dulcolax Supp) 10 mg RECTAL DAILY PRN PRN Reason: SEVERE CONSITIPATION Citric Acid/Sodium Citrate (Sodium Citrate/Citric Acid Liq) 30 ml PO SNOW BLOWER [facility] Stop: 01/26/18 01:14 Fentanyl Citrate (Fentanyl Inj) 50 mcg IV.PUSH Q1H PRN PRN Reason: Pain Scale 3 - 5 Fentanyl Citrate (Fentanyl Inj) 100 mcg IV.PUSH Q1H PRN PRN Reason: PAIN SCALE 6 TO 10 Lactated Ringer's (Lr 1000 Ml Inj) 1,000 mls @ 125 mls/hr IV.CONT .Q8H [facility] Last Admin: 01/23/18 07:40 Dose: Not Given Lactated Ringer's (Lr 1000 Ml Inj) 1,000 mls @ 125 mls/hr IV.CONT .Q8H [facility] Last Admin: 01/23/18 07:39 Dose: Not Given Lactated Ringer's (Lr 1000 Ml Inj) 1,000 mls @ 3,000 mls/hr IV.SIG UNSCH PRN PRN Reason: compromise or epidural Sodium Chloride (Ns Inj) 500 mls @ 1,000 mls/hr IV.SIG UNSCH PRN PRN Reason: SEE LABEL COMMENTS Penicillin G Potassium 2,500, (000 unit/ Sodium Chloride) 100 mls @ 200 mls/hr IV.SIG Q4H [facility] Last Admin: 01/23/18 07:40 Dose: Not Given Sodium Chloride (Ns Inj) 1,000 mls @ 100 mls/hr IV.CONT .Q10H PRN PRN Reason: SEE LABEL COMMENTS Oxytocin (Pitocin 30 Units/Ns 500 Ml Premix) 30 units in 500 mls @ 1 mls/hr IV.SIG TITRATE PRN; Protocol PRN Reason: For induction of labor Oxytocin (Pitocin 30 Units/Ns 500 Ml Premix) 30 units in 500 mls @ 100 mls/hr IV.CONT UNSCH PRN PRN Reason: Heavy bleeding Ibuprofen (Motrin) 800 mg PO Q8H PRN PRN Reason: For Cramping Last Admin: 01/23/18 02:05 Dose: 800 mg Lactulose (Lactulose Liq) 30 ml PO DAILY PRN PRN Reason: SEVERE CONSITIPATION Lidocaine HCl (Xylocaine 1% Inj) 0.1 ml I-DERMAL PRN PRN PRN Reason: For IV start Stop: 01/25/18 01:02 Lidocaine HCl (Xylocaine 1% Inj) 10 ml INFILTRATN PRN PRN PRN Reason: For episiotomy repair Stop: 01/24/18 01:02 Mineral Oil (Muri-Lube Oil) 10 ml TOPICAL PRN PRN PRN Reason: PRN perineal massage Naloxone HCl (Narcan Inj) 0.1 mg IV.PUSH Q2M PRN PRN Reason: for opiate reversal Naloxone HCl (Narcan Inj) 0.1 mg IV.PUSH Q2M PRN PRN Reason: for opiate reversal Ondansetron HCl (Zofran Odt) 4 mg PO Q6H PRN PRN Reason: NAUSEA OR VOMITING Oxytocin (Pitocin Inj) 20 unit IV.SIG ONCE PRN PRN Reason: For excessive bleeding Stop: 01/23/18 09:13 Senna/Docusate Sodium (Tanisha-Colace) 1 tab PO BID [facility] Last Admin: 01/23/18 07:38 Dose: Not Given Sennosides (Senokot) 17.2 mg PO Q12H PRN PRN Reason: Moderate Constipation Sodium Chloride (Ns Flush) 2 ml IV.FLUSH BID [facility] Last Admin: 01/23/18 07:37 Dose: Not Given Sodium Chloride (Ns Flush) 2 ml IV.FLUSH PRN PRN PRN Reason: FLUSH AFTER USING IV ACCESS Sodium Chloride (Ns Flush) 2 ml IV.FLUSH BID [facility] Last Admin: 01/23/18 07:38 Dose: Not Given Sodium Chloride (Ns Flush) 2 ml IV.FLUSH PRN PRN PRN Reason: FLUSH AFTER USING IV ACCESS Terbutaline Sulfate (Brethine Inj) 0.25 mg SQ ONCE PRN PRN Reason: ABDOMINAL CRAMPING Witch Jennyfer/Glycerin (Tucks Pads) 1 applicatio RECTAL QID PRN PRN Reason: HEMORRHOIDS Zolpidem Tartrate (Ambien) 5 mg PO HS PRN PRN Reason: SLEEP Assessment and Plan - Plan PPD 1 pt / cont routine supportive care, support
[2018-01-23] MEDS: Acetaminophen 325 MG Tablet PO PRN ×2 (11:19→19:16)
[2018-01-24 08:41] VITALS: BP 111/67; PULSE 74; TEMP 98
[2018-01-24] MEDS: Senna/Docusate Sodium 8.6/50 MG Tablet PO SCH (12:41)
[2018-01-24] MEDS: Acetaminophen 325 MG Tablet PO PRN (15:46)
--- NOTE | 2018-01-24 17:38 | P.PNOB ---
Subjective Post day: 2 Interval history: Doing well Does not want to nurse son was 6 weeks early and is in the NICU she is ready for discharge Objective Vital Signs/I&O: Vital Signs 01/23/18 20:00 01/24/18 08:00 Temperature 98.2 F 98.0 F Pulse Rate 77 74 Respiratory Rate 18 18 Blood Pressure 109/68 111/67 Result Diagrams: 01/22/18 01:15 Objective Remarks: GENERAL: Well-nourished, well-developed patient. CARDIOVASCULAR: Regular rate and rhythm without murmurs, gallops, or rubs. RESPIRATORY: Breath sounds equal bilaterally. No accessory muscle use. ABDOMEN/GI: Abdomen soft, non-tender. Fundus: Firm, non-tender at umbilicus. GENITOURINARY: Light to moderate bleeding. EXTREMITIES: No cyanosis or edema, non-tender, without signs of DVT. Medications and IVs: Active Medications Acetaminophen (Tylenol) 650 mg PO Q4H PRN PRN Reason: PAIN SCALE 1 TO 2 Last Admin: 01/24/18 15:46 Dose: 650 mg Al Hydroxide/Mg Hydroxide (Milk Of Magnesia Liq) 30 ml PO Q12H PRN PRN Reason: Mild Constipation Benzocaine (Americaine 20% Top [place]) 1 spray TOPICAL Q4H PRN PRN Reason: For Perineum Discomfort Bisacodyl (Dulcolax Supp) 10 mg RECTAL DAILY PRN PRN Reason: SEVERE CONSITIPATION Citric Acid/Sodium Citrate (Sodium Citrate/Citric Acid Liq) 30 ml PO [facility] [employer] Stop: 01/26/18 01:14 Fentanyl Citrate (Fentanyl Inj) 50 mcg IV.PUSH Q1H PRN PRN Reason: Pain Scale 3 - 5 Fentanyl Citrate (Fentanyl Inj) 100 mcg IV.PUSH Q1H PRN PRN Reason: PAIN SCALE 6 TO 10 Lactated Ringer's (Lr 1000 Ml Inj) 1,000 mls @ 125 mls/hr IV.CONT .Q8H [facility] Last Admin: 01/23/18 12:22 Dose: Not Given Lactated Ringer's (Lr 1000 Ml Inj) 1,000 mls @ 125 mls/hr IV.CONT .Q8H [facility] Last Admin: 01/23/18 12:22 Dose: Not Given Lactated Ringer's (Lr 1000 Ml Inj) 1,000 mls @ 3,000 mls/hr IV.SIG UNSCH PRN PRN Reason: compromise or epidural Sodium Chloride (Ns Inj) 500 mls @ 1,000 mls/hr IV.SIG UNSCH PRN PRN Reason: SEE LABEL COMMENTS Penicillin G Potassium 2,500, (000 unit/ Sodium Chloride) 100 mls @ 200 mls/hr IV.SIG Q4H [facility] Last Admin: 01/23/18 12:22 Dose: Not Given Sodium Chloride (Ns Inj) 1,000 mls @ 100 mls/hr IV.CONT .Q10H PRN PRN Reason: SEE LABEL COMMENTS Oxytocin (Pitocin 30 Units/Ns 500 Ml Premix) 30 units in 500 mls @ 1 mls/hr IV.SIG TITRATE PRN; Protocol PRN Reason: For induction of labor Oxytocin (Pitocin 30 Units/Ns 500 Ml Premix) 30 units in 500 mls @ 100 mls/hr IV.CONT UNSCH PRN PRN Reason: Heavy bleeding Ibuprofen (Motrin) 800 mg PO Q8H PRN PRN Reason: For Cramping Last Admin: 01/24/18 15:46 Dose: 800 mg Lactulose (Lactulose Liq) 30 ml PO DAILY PRN PRN Reason: SEVERE CONSITIPATION Lidocaine HCl (Xylocaine 1% Inj) 0.1 ml I-DERMAL PRN PRN PRN Reason: For IV start Stop: 01/25/18 01:02 Mineral Oil (Muri-Lube Oil) 10 ml TOPICAL PRN PRN PRN Reason: PRN perineal massage Naloxone HCl (Narcan Inj) 0.1 mg IV.PUSH Q2M PRN PRN Reason: for opiate reversal Naloxone HCl (Narcan Inj) 0.1 mg IV.PUSH Q2M PRN PRN Reason: for opiate reversal Ondansetron HCl (Zofran Odt) 4 mg PO Q6H PRN PRN Reason: NAUSEA OR VOMITING Senna/Docusate Sodium (Tanisha-Colace) 1 tab PO BID [facility] Last Admin: 01/24/18 12:41 Dose: Not Given Sennosides (Senokot) 17.2 mg PO Q12H PRN PRN Reason: Moderate Constipation Sodium Chloride (Ns Flush) 2 ml IV.FLUSH BID [facility] Last Admin: 01/24/18 12:41 Dose: Not Given Sodium Chloride (Ns Flush) 2 ml IV.FLUSH PRN PRN PRN Reason: FLUSH AFTER USING IV ACCESS Sodium Chloride (Ns Flush) 2 ml IV.FLUSH BID [facility] Last Admin: 01/24/18 12:41 Dose: Not Given Sodium Chloride (Ns Flush) 2 ml IV.FLUSH PRN PRN PRN Reason: FLUSH AFTER USING IV ACCESS Terbutaline Sulfate (Brethine Inj) 0.25 mg SQ ONCE PRN PRN Reason: ABDOMINAL CRAMPING Witch Jennyfer/Glycerin (Tucks Pads) 1 applicatio RECTAL QID PRN PRN Reason: HEMORRHOIDS Zolpidem Tartrate (Ambien) 5 mg PO HS PRN PRN Reason: SLEEP Assessment and Plan - Plan PPD 1 pt / cont routine supportive care, support PPD 2 dicussed Fransico at length and states she will get it have RTO 2 weeks to confirm and make sure ordered. Place at 6 week visit.
== END 2018-01-24 18:47 | disposition home or self-care (01) ==
LOC: HOBED 00:21 → H2E 00:25 → H1EA 12:11
PROVIDERS: ADMIT Obstetrics & Gynecology; ATTEND Obstetrics & Gynecology